=== PATIENT | male | born 1975 | race Caucasian/White ===

== ENCOUNTER 2018-10-07 22:25 | Emergency (ER) | payer MEDICARE, SELFPAY ==
[2018-10-07 22:25] VITALS: BP 127/71; PULSE 72; RESP 15; TEMP 36.9; O2SAT 96; BMI 31.4
--- NOTE | 2018-10-07 23:19 | EKG12_ITS ---
Test Reason : Blood Pressure : / mmHG Vent. Rate : 062 BPM Atrial Rate : 062 BPM P-R Int : 150 ms QRS Dur : 100 ms QT Int : 402 ms P-R-T Axes : 035 047 034 degrees QTc Int : 408 ms Normal sinus rhythm Normal ECG Confirmed by JOVANNY FIORE, DEO ([id number]), content editor DAMON CURRY ([id number]) on 10/09/2018 7:59:14 AM Referred By: MACKENZIE Confirmed By:DEO PETTY MD
--- NOTE | 2018-10-07 23:35 | ED.RN ---
DR SYED NOTIFIED PT SISTER CALLED AND IS WORRIED ABOUT HIS MENTAL STATE. DR SYED TO SPEAK WITH THE PT ABOUT THIS ISSUE AND CONCERN
[2018-10-07] MEDS: 0.9% Normal Saline 1,000 ML 1000 ML IV (23:41)
--- NOTE | 2018-10-07 23:41 | ED.RN ---
SCANNER IN ROOM NOT WORKING.
[2018-10-07 23:51] LABS: Absolute Lymphocyte Count 2.04 X10^3/ul (0.83-4.51); Absolute Neutrophil Count 4.2 X10^3/uL (2.0-7.7); Basophil# 0.02 X10^3/uL; Basophil% 0.3 % (0-1); Eosinophil# 0.06 X10^3/uL; Eosinophils% 0.9 % (0-5); Hematocrit 39.3 % (40-54); Hemoglobin 13.8 g/dl (13.0-16.5); Lymphocyte # 2.04 X10^3/ul (4.0); Lymphocyte % 30.1 % (19-41); Mean Corp Hgb Conc 35.1 g/gl (32-36); Mean Corpuscular Hgb 31.4 pg (27.0-32.0); Mean Corpuscular Volume 89.5 fL (80-94); Mean Platelet Vol. 9.5 fl (6.2-12.0); Monocyte# 0.42 X10^3/uL; Monocyte% 6.2 % (0-10); Neutrophil # 4.22 X10^3/uL (2.7-7.7); Neutrophil % 62.4 % (47-70); Platelet Count 247 K/mm3 (150-450); RBC Distribution Width CV 12.9 % (11.6-14.6); RBC Distribution Width SD 41.9 fl (35.1-43.9); Red Blood Count 4.39 M/mm3 (4.6-6.2); White Blood Count 6.8 K/mm3 (4.4-11.0)
[2018-10-07 23:52] LABS: POSITIVE COUNT NO; POSITIVE DIFFERENTIAL NO; POSITIVE MORPHOLOGY NO
[2018-10-08 00:10] LABS: ALB/GLOB Ratio 1.1 RATIO (0.9-2.4); AST(SGOT) 17 U/L (15-37); Alanine Aminotransfer ALT/SGPT 22 U/L (16-61); Albumin, Serum 3.8 g/dL (3.2-5.0); Alkaline Phosphatase 72 U/L (45-117); Anion Gap 5 (5-15); BUN 5 mg/dL (7-18); BUN/Creat Ratio 3.8 RATIO (10-20); Calcium,Total 8.7 mg/dL (8.5-10.1); Chloride 102 mmol/L (98-107); Creatinine, Serum 1.32 mg/dL (0.70-1.30); EST Glomerular Filtration Rate 63 mL/min (>60); Est Glom Filt Rate - Afr Amer 76 mL/min (>60); Estimated Creatinine Clearance 86.24 ml/min; Globulin 3.6 g/dL (2.2-4.2); Glucose 100 mg/dL (74-106); Potassium 3.6 mmol/L (3.5-5.1); Protein, Total 7.4 g/dL (6.4-8.2); Sodium Level 135 mmol/L (136-145)
--- NOTE | 2018-10-08 00:11 | ED.DCSUM_ITS ---
- ER Visit Summary Date of Service: 10/08/18 Chief Complaint: Lightheadedness History of Present Illness: The patient is a 43 M with a history of hypertension and bipolar disorder presents to the emergency department with lightheadedness. The patient states his been compliant with his medications. States tonight, he was washing dishes. He states he became lightheaded. He did not feel that he was going to pass out, but just felt mildly unsteady. He states this is never happened before. He denies chest pain. He denies shortness of breath. He states that my legs felt tight. He denies any focal symptoms. The patient's been compliant with all his medications. He denies being suicidal or homicidal. He is otherwise been in his normal state of health. Physical Examination: Vital signs reviewed General: Well-nourished, well-developed Head: Normocephalic, atraumatic Eyes: Pupils equal and reactive, extraocular muscles intact Neck, supple, no lymphadenopathy Heart: Regular rate and rhythm Respiratory: No distress, clear bilaterally Abdomen: Soft, nontender, nondistended, no peritoneal signs Back: Nontender Extremities: Nontender, no edema, no cords Skin: Normal color no rash Neuro: Alert and oriented, no focal or lateralizing deficits Test Results: [] Emergency Department Course and Treatment: The patient presents after a near syncopal episode. EKG was obtained. It was sinus rhythm without acute ischemic change. There is normal axis and intervals. The patient was given fluids and was observed. Screening labs are obtained were unremarkable. He had no further symptoms. At this point, I do feel that he safe for outpatient therapy. I do not suspect a dangerous process. He has no tachycardia. He has no tachypnea. He has no focal neurologic symptoms. The patient will be discharged home. Treatment Plan: [] Disposition: Discharge Impression: 1. Lightheadedness This note was generated with [employer] dictation software. It may contain incorrect words, spelling, and punctuation that were not noted in review of the chart prior to signing ED Disposition - Plan for ED Patient: Instructions: NEAR SYNCOPE, Vasovagal Referrals: Manuel Engel DO [Primary Care Provider] -
[2018-10-08 00:52] VITALS: BP 153/95; PULSE 65; RESP 16; O2SAT 96
== END 2018-10-08 00:53 | disposition home or self-care (01) ==
LOC: ED 10-08 00:09
PROVIDERS: Emergency Provider Emergency Medicine; Family Provider Student in an Organized Health Care Education/Training Program; PCP Student in an Organized Health Care Education/Training Program
DX: R42 Dizziness and giddiness (principal); I10 Essential (primary) hypertension; F31.9 Bipolar disorder, unspecified; Z79.899 Other long term (current) drug therapy
CPT/HCPCS: 80053; 85025; 93005; 96360; 99284; J7030; A4216

== ENCOUNTER 2022-07-09 01:14 | Emergency (ER) | payer MEDICARE, SELFPAY ==
[2022-07-09 01:15] VITALS: BP 156/111; PULSE 85; RESP 14; TEMP 36.9; O2SAT 100; BMI 31.4
--- NOTE | 2022-07-09 01:31 | RAD_ITS ---
EXAM: XR LEFT FOOT COMPLETE, 3 OR MORE VIEWS CLINICAL INDICATION: pain pain TECHNIQUE: Frontal, lateral and oblique views of the left foot. This report was created using [employer] report generation technology. COMPARISON: None. FINDINGS: BONES/JOINTS: There is mild degenerative arthrosis of the first metatarsophalangeal joint. No acute fracture. No subluxation. Normal alignment. No sclerotic or destructive changes observed. SOFT TISSUES: Unremarkable. No soft tissue swelling or gas. No radiopaque foreign body. RAD/Foot min 3 Views IMPRESSION: No demonstrated fracture, dislocation, or destructive osseous lesion. Electronically Signed: Steven Mendez MD at 2:40 EDT ,
--- NOTE | 2022-07-09 01:40 | EDS_ITS ---
HPI History of Present Illness Chief Complaint: Lower Extremity Injury Narrative Narrative: Patient is a 46-year-old male with past medical history of hypertension and schizophrenia. He states he has had pain to his left heel that is worse with weightbearing/ambulation over the last few days. He denies any direct trauma and he denies any excessive walking or activity prior to the pain beginning. He states he is concerned that he may have an infection or a broken foot because of the increased pain and with this comes in for evaluation. PFSH PFSH Home Medications lisinopril 10 mg tablet (Prinivil) 10 mg PO DAILY 06/12/16 [History Last Taken Unknown] risperidone 1 mg tablet 1 mg PO DAILY 06/12/16 [History Last Taken Unknown] clindamycin HCl 150 mg capsule 300 mg PO 4X/DAY ##80 09/02/16 [Rx Last Taken Unknown] Allergy/AdvReac Type Severity Reaction Status Date / Time methylphenidate HCl AdvReac Nausea Verified 07/09/22 01:17 [From Ritalin] Social History Smoking Status: Current some day smoker tobacco type: cigarettes ROS ROS ED Constitutional Constitutional ED: Denies chills or fever(s) ENT ENT ED: Denies sore throat Cardiovascular Cardiovascular: Denies chest pain Respiratory/Chest Respiratory/Chest: Denies cough or dyspnea Gastrointestinal Gastrointestinal: Denies abdominal pain, diarrhea, nausea or vomiting Genitourinary Genitourinary ED: Denies dysuria Musculoskeletal Musculoskeletal: Reports other Details: Positive left heel pain Integumentary Denies Abrasions or rash Neurologic Neurologic: Denies headache(s) or paresthesias Hematologic/Lymphatic Hematologic/Lymphatic: Denies easy bleeding or easy bruising EXAM Physical Exam Const Vital Signs: 07/09/22 01:15 Temperature 98.5 F Temperature Source Temporal Pulse Rate 85 Respiratory Rate 14 Blood Pressure 156/111 H Blood Pressure Mean 126 Pulse Ox 100 Oxygen Delivery Method Room Air Positive well nourished and well developed General Appearance ED: well developed Eyes PERRL and EOMs intact bilaterally Neck supple Resp normal respiratory effort and clear to auscultation bilaterally Cardio regular rate and regular rhythm Extremity Extremity Narrative: Left lower extremity is neurovascularly intact. There is no obvious bony deformity or joint effusion present. Achilles tendon is intact and ankle ligaments are stable. There is no overlying erythema or warmth to suggest cellulitis and no induration or fluctuance to suggest abscess formation. There is pain on palpation along the calcaneus as well as the lateral aspects of the heel bilaterally Remainder the exam is normal Neuro oriented x3 and CN's II-XII intact bilaterally Sensorium / Orientation: alert Psych Psych Narrative: Patient has a flat affect Skin no rashes or lesions noted Skin Narrative: No overlying soft tissue changes to suggest trauma or infection MDM MDM MDM Narrative Medical decision making narrative: Patient presented to the ER hypertensive but does have a past medical history of this. He reported pain in his left heel that occurred without any type of trauma or excessive activity. Pain in the heel region includes differential of heel spur plantar fasciitis cellulitis abscess or Sever's syndrome or possible Achilles tendon injury. By exam he can plantarflex without any pain going against Achilles tendon injury. He has no erythema or warmth no lymphangitic streaking no induration or fluctuance and therefore there is no obvious signs of an infectious process. X-ray was obtained which revealed no acute fracture or heel spur indicating pain is most likely related to irritation/inflammation along the tendons and bone consistent with Sever's syndrome. The patient was instructed that treatment for this is rest compression ice and anti- inflammatories. 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 Wear the Fernando wrap for compression and take the anti- inflammatories for pain control and return to the ER should you have any further concerns Disposition Disposition: Home, Self Care
[2022-07-09] MEDS: Ibuprofen 600 MG Tablet PO (02:41)
== END 2022-07-09 02:45 | disposition home or self-care (01) ==
PROVIDERS: Emergency Provider Emergency Medicine; PCP Student in an Organized Health Care Education/Training Program; Visit Provider Emergency Medicine
DX: M92.62 Juvenile osteochondrosis of tarsus, left ankle (principal); F20.9 Schizophrenia, unspecified; I10 Essential (primary) hypertension; F17.210 Nicotine dependence, cigarettes, uncomplicated; Z79.899 Other long term (current) drug therapy
CPT/HCPCS: 73630; 99283

== ENCOUNTER 2022-07-31 01:39 | Emergency (ER) | payer MEDICARE, MEDICAID, SELFPAY ==
[2022-07-31 01:41] VITALS: BP 156/90; PULSE 82; RESP 18; TEMP 36.7; O2SAT 98; BMI 31.1
--- NOTE | 2022-07-31 02:39 | EX.ED.DYSGE1 ---
HPI History of Present Illness Chief Complaint: Lower Extremity Injury Informant: patient Narrative Narrative: Patient presents with bilateral foot pain. He states both of them hurt mostly by the heels. He denies any specific trauma. He states he is homeless and he walks around a lot. He states his shoes do fit him well. He is not having blistering. He has gotten them wet. No fevers or chills. No swelling. No numbness or tingling. No history of DVT or PE. He states he has been seen before for this. He did have x-rays of the left foot few weeks ago. Again, he denies any specific trauma. PFSH PFSH Home Medications lisinopril 10 mg tablet (Prinivil) 10 mg PO DAILY 06/12/16 [History Last Taken Unknown] risperidone 1 mg tablet 1 mg PO DAILY 06/12/16 [History Last Taken Unknown] clindamycin HCl 150 mg capsule 300 mg PO 4X/DAY ##80 09/02/16 [Rx Last Taken Unknown] ibuprofen 600 mg tablet 600 mg PO 4X/DAY PRN pain #40 tabs 07/09/22 [Rx Last Taken Unknown] Allergy/AdvReac Type Severity Reaction Status Date / Time methylphenidate HCl AdvReac Nausea Verified 07/31/22 01:45 [From Ritalin] Social History Smoking Status: Current some day smoker tobacco type: cigarettes ROS ROS ED Constitutional Constitutional ED: Denies chills or fever(s) Cardiovascular Cardiovascular: Denies chest pain Respiratory/Chest Respiratory/Chest: Denies cough or dyspnea Gastrointestinal Gastrointestinal: Denies nausea or vomiting Genitourinary Genitourinary ED: Denies hematuria Musculoskeletal Musculoskeletal: Reports other Details: See history of present illness. ; Denies back pain or neck pain Integumentary Denies rash Neurologic Neurologic: Denies paresthesias Hematologic/Lymphatic Hematologic/Lymphatic: Denies easy bleeding, easy bruising or lymphadenopathy Allergic/Immunologic Allergic/Immunologic ED: Denies urticaria EXAM Physical Exam Narrative Exam Narrative: Patient is sound asleep when I walk in. He is lying comfortably in the bed. HEENT shows no trauma Lungs are clear bilaterally. Easy unlabored breathing. Normal saturations. Heart is regular rate about 75. I hear no murmur. Abdomen is soft. back shows no tenderness Extremities show no edema cords or color changes. There is mild redness to the soles of both feet. There is a little bit of tinea pedis between the toes but no sign of secondary infection. There is no swelling. There is wrinkling of the skin consistent with them being wet. There does not appear to be any sensory change or hyperesthesia. Const Vital Signs: 07/31/22 01:41 Temperature 98.0 F Temperature Source Temporal Pulse Rate 82 Respiratory Rate 18 Blood Pressure 156/90 H Blood Pressure Mean 112 Pulse Ox 98 Oxygen Delivery Method Room Air MDM MDM MDM Narrative Medical decision making narrative: Patient states both feet have been hurting him for a long time. There is nothing new or different today. He states he does do a lot of walking. I do not see any sign of blistering or poor fitting shoes. But I think some of this comes from being chronically moist. Some may come from athlete's foot although most of his pain is actually back by the heels and not the toes. I do not think we need to repeat x-rays. I think limiting activity and walking would limit the discomfort. I cannot force him not to walk. I can offer some meds for the athlete's foot. Patient does have social factors that affect his healing in terms of being homeless. This does limit his ability to rest during the day and not walk around a lot. I will see if we do have some socks that may at least offer him a dry option so he can alternate. Discharge Plan Triage Chief Complaint: Lower Extremity Injury ED Provider: Sohail Pitts Dx/Rx/DC Orders Clinical Impression: Bilateral foot pain, Athlete's foot, Homelessness Instructions: ED Athlete's Foot Prescriptions: No Action lisinopril [Prinivil] 10 MG tablet 10 mg PO DAILY risperidone 1 MG tablet 1 mg PO DAILY clindamycin HCl 150 MG capsule 300 mg PO 4X/DAY Qty: 80 0RF ibuprofen 600 mg tablet 600 mg PO 4X/DAY PRN (Reason: pain) Qty: 40 0RF Primary Care Provider: Manuel Engel Referrals: Manuel Engel, [Primary Care Provider] - 1 Week if not improving Activity Restrictions/Additional Instructions: Try to limit walking if able. Try to dry out shoes and use dry socks as much as able. Disposition Disposition: Home, Self Care
[2022-07-31] MEDS: Clotrimazole 1 APPLIC Tube TOPICAL (03:00)
[2022-07-31 03:26] VITALS: PULSE 81; RESP 16
== END 2022-07-31 03:26 | disposition home or self-care (01) ==
PROVIDERS: Emergency Provider Emergency Medicine; PCP Student in an Organized Health Care Education/Training Program; Visit Provider Emergency Medicine
DX: M79.672 Pain in left foot (principal); F17.210 Nicotine dependence, cigarettes, uncomplicated; B35.3 Tinea pedis; M79.671 Pain in right foot; Z59.00 Homelessness unspecified
CPT/HCPCS: 99282

== ENCOUNTER 2022-08-03 02:14 | Emergency (ER) | payer MEDICARE, MEDICAID, SELFPAY ==
[2022-08-03 02:15] VITALS: BP 167/99; PULSE 77; RESP 16; TEMP 37; O2SAT 99; BMI 33.6
--- NOTE | 2022-08-03 02:34 | EX.ED.DYSGE1 ---
HPI History of Present Illness Chief Complaint: Lower Extremity Injury Narrative Narrative: 46-year-old male here for foot pain. Notes bilateral foot pain. Denies any swelling. Denies any discoloration. Denies any recent injury or trauma. Denies any fever. Denies any loss of sensation. The patient denies recent surgery in the last 4 weeks or immobilization in the last 3 days, denies previous diagnosis of DVT or PE, he denies hemoptysis to me, unilateral leg swelling or malignancy with treatment the last 6 months. No estrogen use noted. PFSH PFS Medical History (Updated 08/03/22 @ 02:[address] Ish Hernandez DO) Schizophrenia Medical History no medical history Home Medications lisinopril 10 mg tablet (Prinivil) 10 mg PO DAILY 06/12/16 [History Last Taken Unknown] risperidone 1 mg tablet 1 mg PO DAILY 06/12/16 [History Last Taken Unknown] clindamycin HCl 150 mg capsule 300 mg PO 4X/DAY ##80 09/02/16 [Rx Last Taken Unknown] ibuprofen 600 mg tablet 600 mg PO 4X/DAY PRN pain #40 tabs 07/09/22 [Rx Last Taken Unknown] Allergy/AdvReac Type Severity Reaction Status Date / Time methylphenidate HCl AdvReac Nausea Verified 08/03/22 02:22 [From Ritalin] Social History Smoking Status: Current some day smoker tobacco type: cigarettes ROS ROS ED ROS Narrative Constitutional: Denies fever HEENT: Denies sore throat Neck: Denies neck pain Cardiovascular: Denies chest pain, syncope Respiratory: Denies shortness of breath GI: Denies nausea vomiting or abdominal pain : Denies changes in urinary habits Musculoskeletal: Endorses bilateral foot pain Neurologic: Denies numbness weakness or loss of sensation Skin denies rash EXAM Physical Exam Narrative Exam Narrative: Nursing triage notes reviewed, Vital signs reviewed Constitutional: please see mdm HENT: MMM Eyes: Pupils equal round and reactive to light, Extraocular muscles intact Neck: No stridor, no JVD, full neck ROM Lungs: Clear to auscultation, No wheezing or rales. No increased work of breathing, no conversational dyspnea, no accessory muscle use, no nasal flaring. No respiratory distress noted Heart: Regular rate and rhythm, No murmurs, No rubs and No gallops, 2+ distal pulses (radial, femoral, posterior tibial) in all extremities Abdomen: Soft, there is no tenderness, rigidity, rebound or guarding, no obvious peritoneal signs, no palpable pulsatile abdominal masses, no auscultated abdominal bruit : No CVAT Extremities: No edema, no obvious deformities, intact plantar dorsiflexion, no calf tenderness, compartments are soft Neuro: Intact sensation L1-S1 dermatomal distributions. Intact 5/5 strength in hip flexion (T12-L3). Knee extension (L2-L4). Ankle dorsiflexion (L4-L5). Ankle plantar flexion (S1). Great toe extension (L5). 2+ patellar and Achilles DTRs. Skin: No rash or lesions noted Const Vital Signs: 08/03/22 02:15 Temperature 98.6 F Temperature Source Temporal Pulse Rate 77 Respiratory Rate 16 Blood Pressure 167/99 H Blood Pressure Mean 121 Pulse Ox 99 Oxygen Delivery Method Room Air MDM MDM MDM Narrative Medical decision making narrative: Chief Complaint: Bilateral foot burning External records reviewed: Seen on 07/31 for similar symptoms. Diagnosed athlete's foot I considered the following differential diagnosis: Trench foot, athlete's foot, DVT, carbon syndrome, arterial occlusion, fracture dislocation, cellulitis, necrotizing fasciitis The patient was hemodynamically stable, afebrile, nontoxic-appearing exam consistent with prior episode of athlete's foot. No clinical evidence of arterial occlusion, compartment syndrome, fracture dislocation, DVT, necrotizing fasciitis, cellulitis. Encouraged him to continue his treatments. The patient was given clean socks. There is no acute life limiting etiology could be ascertained. In terms the patient has a complaint of coughing up blood. He denies this to me. Factors affecting care: History of schizophrenia, hypertension Social determinants of health: Homeless History obtained from others: None Shared decision making: I will have a discussion with the patient and or visitors regarding risk/benefits of further testing or admission. They will be made aware of of the risk/benefits inherent in this decision they will be given the opportunity to voice understanding. Consults: None Discharge Plan Triage Chief Complaint: Lower Extremity Injury ED Provider: Ish Hernandez Dx/Rx/DC Orders Clinical Impression: Bilateral foot pain, Homelessness Instructions: ED RICE Prescriptions: No Action lisinopril [Prinivil] 10 MG tablet 10 mg PO DAILY risperidone 1 MG tablet 1 mg PO DAILY clindamycin HCl 150 MG capsule 300 mg PO 4X/DAY Qty: 80 0RF ibuprofen 600 mg tablet 600 mg PO 4X/DAY PRN (Reason: pain) Qty: 40 0RF Primary Care Provider: Manuel Engel Referrals: Manuel Engel, [Primary Care Provider] - Activity Restrictions/Additional Instructions: Thank you for trusting us with your care today! Please take Tylenol (2 pills, 650 mg), ibuprofen (2 pills, 400 mg) every 6 hours as needed for pain and fever control. Please return to the emergency department if your symptoms change or worsen. Please follow with your primary care physician for further outpatient evaluation and management. Disposition Disposition: Home, Self Care
== END 2022-08-03 03:28 | disposition home or self-care (01) ==
LOC: ED 03:02
PROVIDERS: Emergency Provider Emergency Medicine; PCP Student in an Organized Health Care Education/Training Program; Visit Provider Emergency Medicine
DX: M79.671 Pain in right foot (principal); F20.9 Schizophrenia, unspecified; F17.210 Nicotine dependence, cigarettes, uncomplicated; M79.672 Pain in left foot; I10 Essential (primary) hypertension; Z59.00 Homelessness unspecified; Z79.899 Other long term (current) drug therapy
CPT/HCPCS: 99283

== ENCOUNTER 2022-08-04 23:40 | Emergency (ER) | payer MEDICARE, MEDICAID, SELFPAY ==
[2022-08-04 23:41] VITALS: BP 152/87; PULSE 99; RESP 16; TEMP 36.7; O2SAT 99; BMI 31.0
[2022-08-05 00:24] VITALS: BP 152/87; PULSE 99; RESP 16; O2SAT 99
--- NOTE | 2022-08-05 00:24 | EX.ED.DYSGE1 ---
HPI History of Present Illness Chief Complaint: Lower Extremity Injury Narrative Narrative: Patient is a 46-year-old male with past medical history of schizophrenia as well as homelessness. He was seen in the ER at the end of June and had x-rays of his feet which showed no acute findings. Since that time he was seen on July 31 and August 03 secondary to foot pain and burning. Patient states that the symptoms have persisted that he has not followed up with podiatry and because of the persistent symptoms comes in for repeat evaluation [facility] Medical History Schizophrenia Home Medications lisinopril 10 mg tablet (Prinivil) 10 mg PO DAILY 06/12/16 [History Last Taken Unknown] risperidone 1 mg tablet 1 mg PO DAILY 06/12/16 [History Last Taken Unknown] clindamycin HCl 150 mg capsule 300 mg PO 4X/DAY ##80 09/02/16 [Rx Last Taken Unknown] ibuprofen 600 mg tablet 600 mg PO 4X/DAY PRN pain #40 tabs 07/09/22 [Rx Last Taken Unknown] Allergy/AdvReac Type Severity Reaction Status Date / Time methylphenidate HCl AdvReac Nausea Verified 08/03/22 02:22 [From Ritalin] Social History Smoking Status: Current some day smoker tobacco type: cigarettes ROS ROS ED Constitutional Constitutional ED: Denies chills or fever(s) ENT ENT ED: Denies sore throat Cardiovascular Cardiovascular: Denies chest pain Respiratory/Chest Respiratory/Chest: Denies cough or dyspnea Gastrointestinal Gastrointestinal: Denies abdominal pain, diarrhea, nausea or vomiting Genitourinary Genitourinary ED: Denies dysuria Musculoskeletal Musculoskeletal: Reports other Details: Positive bilateral foot pain Integumentary Denies rash Neurologic Neurologic: Denies headache(s) Hematologic/Lymphatic Hematologic/Lymphatic: Denies easy bleeding or easy bruising EXAM Physical Exam Const Vital Signs: 08/04/22 23:41 Temperature 98.0 F Temperature Source Temporal Pulse Rate 99 Respiratory Rate 16 Blood Pressure 152/87 H Blood Pressure Mean 108 Pulse Ox 99 Oxygen Delivery Method Room Air Positive well nourished and well developed General Appearance ED: well developed Eyes PERRL and EOMs intact bilaterally Neck supple Resp normal respiratory effort and clear to auscultation bilaterally Cardio regular rate and regular rhythm Extremity Extremity Narrative: Bilateral lower extremities are neurovascularly intact. There is no obvious bony deformity or joint effusion. Capillary refill is less than 3 seconds bilaterally. No subungual hematomas noted. No overlying abrasions or ecchymosis. Patient has mild tinea pedis without secondary changes to suggest infection. No ulcerative lesions. No erythema or warmth or lymphangitic streaking. Neuro oriented x3 and CN's II-XII intact bilaterally Sensorium / Orientation: alert Psych Psych Narrative: Patient has a flat affect Skin Skin Narrative: Soft tissue changes to the bilateral feet consistent with tinea pedis otherwise normal MDM MDM MDM Narrative Medical decision making narrative: Patient presented to the ER hypertensive otherwise with stable vitals. He denied any recent trauma. He states the pain is more of a burning sensation and is present in both feet. He states he has been using the cream without any symptom improvement. He states there is been no change to his symptoms such as increased severity or waxing and waning nature but because of his persistent nature comes in for repeat evaluation. Differential diagnosis includes cellulitis abscess osteomyelitis DVT acute arterial occlusion or gout. The patient does not have asymmetric edema there is negative Homans' sign bilaterally there is no erythema or warmth or streaking no induration or fluctuance noted and therefore concerns for infectious process or venous or arterial occlusion are low. As there is no report or signs of trauma and my concern for osteomyelitis is low there is no need for repeat x-ray . he does have changes consistent with tinea pedis with this is mild nature without systemic symptoms and therefore he needs to continue to use the cream that was prescribed at the previous evaluation. I do not feel there is need for further work-up and he can have this further evaluated by podiatry on an outpatient basis. The patient was informed that there is no grounds for further testing or admission which is what he was requesting at this time will be discharged and strongly advised to follow-up on an outpatient basis History & Record Review Discussion w/independent historian: Patient Discharge Plan Triage Chief Complaint: Lower Extremity Injury ED Provider: Volodymyr Paz Dx/Rx/DC Orders Clinical Impression: Bilateral foot pain, Athlete's foot Instructions: What Is Peripheral Neuropathy, ED Fungal Skin Infection (Tinea) Prescriptions: No Action lisinopril [Prinivil] 10 MG tablet 10 mg PO DAILY risperidone 1 MG tablet 1 mg PO DAILY clindamycin HCl 150 MG capsule 300 mg PO 4X/DAY Qty: 80 0RF ibuprofen 600 mg tablet 600 mg PO 4X/DAY PRN (Reason: pain) Qty: 40 0RF Primary Care Provider: Manuel Engel Referrals: Manuel Engel DO [Primary Care Provider] - Gael Obrien DPM [Med Staff - Active Staff] - Disposition Disposition: Home, Self Care
== END 2022-08-05 00:30 | disposition home or self-care (01) ==
PROVIDERS: Emergency Provider Emergency Medicine; PCP Student in an Organized Health Care Education/Training Program; Visit Provider Emergency Medicine
DX: M79.671 Pain in right foot (principal); F20.9 Schizophrenia, unspecified; M79.672 Pain in left foot; B35.3 Tinea pedis; F17.210 Nicotine dependence, cigarettes, uncomplicated; Z59.00 Homelessness unspecified; Z79.899 Other long term (current) drug therapy
CPT/HCPCS: 99282

== ENCOUNTER 2022-08-18 02:04 | Emergency (ER) | payer MEDICARE, MEDICAID, SELFPAY ==
[2022-08-18 02:06] VITALS: BP 142/98; PULSE 83; RESP 18; TEMP 36.2; O2SAT 98; BMI 30.6
--- NOTE | 2022-08-18 02:50 | RAD_ITS ---
EXAM: XR LEFT FOOT COMPLETE, 3 OR MORE VIEWS CLINICAL INDICATION: pain TECHNIQUE: Frontal, lateral and oblique views of the left foot. COMPARISON: 07/09/2022. FINDINGS: BONES/JOINTS: Unremarkable. No acute fracture. No subluxation. Normal alignment. Preservation of the joint space. No sclerotic or destructive changes observed. SOFT TISSUES: Unremarkable. No soft tissue swelling or gas. No radiopaque foreign body. RAD/Foot min 3 Views IMPRESSION: Negative left foot x-rays. Electronically Signed: Garry Silver MD at 3:16 EDT ,
--- NOTE | 2022-08-18 03:50 | EDS_ITS ---
HPI History of Present Illness Chief Complaint: Lower Extremity Injury Narrative Narrative: Patient is a 46-year-old male with past medical history of schizophrenia who presents with complaint of left foot pain. Patient has been seen in the ER secondary to this in the past with negative x-rays and he fails to follow-up with the podiatry as directed. He states there has been no injury and he denies any fevers or chills or discoloration to the foot. He states he has pain when he is laying down but more so when he ambulates. He states the pain will go from his heel/ankle underneath his foot towards his toes. He states it does not improve with recurrent ambulation but simply seems to worsen the more he stands or walks. [facility] and he was advised to come to the hospital for evaluation so he presents at this time [facility] Medical History Schizophrenia Home Medications NK 08/18/22 [History Last Taken Unknown] Allergy/AdvReac Type Severity Reaction Status Date / Time methylphenidate HCl AdvReac Nausea Verified 08/18/22 02:05 [From Ritalin] Social History Smoking Status: Current some day smoker tobacco type: cigarettes ROS ROS ED Constitutional Constitutional ED: Denies chills or fever(s) ENT ENT ED: Denies sore throat Cardiovascular Cardiovascular: Denies chest pain Respiratory/Chest Respiratory/Chest: Denies cough or dyspnea Gastrointestinal Gastrointestinal: Denies abdominal pain, diarrhea, nausea or vomiting Genitourinary Genitourinary ED: Denies dysuria Musculoskeletal Musculoskeletal: Reports other Details: Positive left foot pain Integumentary Denies Abrasions or rash Neurologic Neurologic: Denies headache(s) or paresthesias Hematologic/Lymphatic Hematologic/Lymphatic: Denies easy bleeding or easy bruising EXAM Physical Exam Const Vital Signs: 08/18/22 02:06 Temperature 97.2 F L Temperature Source Temporal Pulse Rate 83 Respiratory Rate 18 Blood Pressure 142/98 H Blood Pressure Mean 112 Pulse Ox 98 Oxygen Delivery Method Room Air Positive well nourished and well developed General Appearance ED: well developed Eyes PERRL and EOMs intact bilaterally Neck supple Resp normal respiratory effort and clear to auscultation bilaterally Cardio regular rate and regular rhythm Extremity Extremity Narrative: Left lower extremity is neurovascularly intact. Achilles tendon is intact and ankle ligaments are stable. Patient has plus 2 out of 4 dorsalis pedis pulses bilaterally. Capillary refill is less than 3 seconds. No overlying erythema or warmth to suggest infection no induration or fluctuance to suggest abscess and no lymphangitic streaking. Patient has mild soft tissue skin breakdown in between the webbing of his toes concerning for mild tinea pedis. There is pain with palpation along the posterior aspect of the medial malleolus which tracks down along the Achilles tendon and calcaneus to the midportion of the foot. There is no obvious ecchymosis or soft tissue swelling or crepitance palpated Neuro oriented x3 and CN's II-XII intact bilaterally Sensorium / Orientation: alert Psych Psych Narrative: Patient has a flat affect Skin no rashes or lesions noted MDM MDM MDM Narrative Medical decision making narrative: Patient presented to the ER afebrile with complaint of persistent/chronic left foot pain with no known injury. Differential diagnosis and includes heel spur versus acute foreign body versus fracture versus cellulitis versus tarsal tunnel syndrome versus osteomyelitis. By exam there is no erythema or warmth so cellulitis and abscess are less likely as well as osteomyelitis. There is no signs of puncture wound or injury so concern for foreign body and fracture is low as well. With pain tracking along the medial malleolus towards the bottom portion of the foot there is concern this is tarsal tunnel syndrome but if so that is treated conservatively and he does not need further work-up or admission. X-ray was obtained which revealed no clinically significant changes and was compared to one from roughly 6 weeks ago which revealed also no fracture or dislocation foreign body or signs of osteomyelitis. Therefore at this time there is no need to further evaluate the patient in the ER and he was instructed that he has to follow-up with the podiatry as he will not receive pain medication in the ER for his chronic left foot pain History & Record Review Discussion w/independent historian: Patient Radiography Diagnostic Testing: Clinical Impression(s) from Imaging Studies Foot X-Ray 08/18/22 02:50 IMPRESSION: Negative left foot x-rays. Electronically Signed: Garry Silver MD at 3:16 EDT , X-ray of the left foot reveals no acute fracture dislocation or foreign body or signs of free air. No moth-eaten appearance to suggest osteomyelitis Discharge Plan Triage Chief Complaint: Lower Extremity Injury ED Provider: Volodymyr Paz Dx/Rx/DC Orders Clinical Impression: Chronic pain in left foot, Tarsal tunnel syndrome, left lower limb, Schizophrenia Instructions: Understanding Heel Pain Prescriptions: No Action NK Primary Care Provider: Manuel Engel Referrals: Manuel Engel DO [Primary Care Provider] - Garry Bailey DPM [Med Staff - Active Staff] - Activity Restrictions/Additional Instructions: Please follow-up with podiatry to further assess the cause of your chronic foot pain as x-ray showed no sign of fracture dislocation or infection. Disposition Disposition: Home, Self Care Discharge Date/Time: 08/18/22 03:55
== END 2022-08-18 03:55 | disposition home or self-care (01) ==
PROVIDERS: Emergency Provider Emergency Medicine; PCP Student in an Organized Health Care Education/Training Program; Visit Provider Emergency Medicine
DX: G89.29 Other chronic pain (principal); F20.9 Schizophrenia, unspecified; F17.210 Nicotine dependence, cigarettes, uncomplicated; G57.52 Tarsal tunnel syndrome, left lower limb
CPT/HCPCS: 73630; 99282

== ENCOUNTER 2022-08-22 02:16 | Emergency (ER) | payer MEDICARE, MEDICAID, SELFPAY ==
[2022-08-22 02:16] VITALS: BP 158/92; PULSE 85; RESP 16; TEMP 37.2; O2SAT 98
--- NOTE | 2022-08-22 03:06 | ED.VIS.LOWEX ---
HPI History of Present Illness Chief Complaint: Lower Extremity Injury Informant: patient Narrative Narrative: Foot pain for months. This is his fifth or so visit here in the emergency department in the last couple months for the same thing. He has been referred to podiatry. He states he has an appointment but has not seen them yet. He denies any new symptoms. [facility] Medical History Schizophrenia Home Medications NK 08/18/22 [History Last Taken Unknown] Allergy/AdvReac Type Severity Reaction Status Date / Time methylphenidate HCl AdvReac Nausea Verified 08/22/22 02:18 [From Ritalin] Social History Smoking Status: Current some day smoker tobacco type: cigarettes ROS ROS ED Constitutional Constitutional ED: Denies chills or fever(s) Musculoskeletal Musculoskeletal: Reports extremity pain; Denies neck pain Integumentary Denies Abrasions, rash or wounds Neurologic Neurologic: Denies paresthesias or weakness EXAM Physical Exam Const Vital Signs: 08/22/22 02:16 Temperature 99 F Temperature Source Temporal Pulse Rate 85 Respiratory Rate 16 Blood Pressure 158/92 H Blood Pressure Mean 114 Pulse Ox 98 Oxygen Delivery Method Room Air Positive well nourished, well developed and unkempt General Appearance ED: unkempt, well developed and NAD Neck full ROM and supple Back/Spine normal ROM and normal to inspection Extremity normal to inspection and full ROM Extremity Narrative: Tender at the calcaneus and to the posterior aspect of the arch at the plantar aspect of the left foot. Skin is normal no lesions no abscess no signs of cellulitis. Full range of motion without difficulty, neurovascularly intact distally, no tenderness at Achilles. Neuro oriented x3, no focal motor deficits and no sensory deficits noted Sensorium / Orientation: alert Psych mental status grossly normal and thought process normal Appearance: unkempt Skin no wounds Rashes: no rashes MDM MDM MDM Narrative Medical decision making narrative: Patient is here at 2 AM for this problem that he continues to return to the ER for. I am giving him an injection of Depo-Medrol 40 mg and advised him to continue following up with podiatry, and to look for [id number] shoe insole inserts. Discharge Plan Triage Chief Complaint: Lower Extremity Injury ED Provider: Poncho Rizzo Dx/Rx/DC Orders Clinical Impression: Plantar fasciitis of left foot Instructions: ED Plantar Fasciitis Prescriptions: No Action NK Primary Care Provider: Manuel Engel Referrals: Manuel Engel DO [Primary Care Provider] - Gael Obrien DPM [Med Staff - Active Staff] - Keep Jesus appointment Disposition Disposition: Home, Self Care
[2022-08-22] MEDS: MethylPREDNISolone Acetate 40 MG/ML Vial IM (03:43)
== END 2022-08-22 03:47 | disposition home or self-care (01) ==
PROVIDERS: Emergency Provider Emergency Medicine; PCP Student in an Organized Health Care Education/Training Program; Visit Provider Emergency Medicine
DX: M72.2 Plantar fascial fibromatosis (principal); F17.210 Nicotine dependence, cigarettes, uncomplicated
CPT/HCPCS: 96372; 99282

== ENCOUNTER 2022-08-31 02:54 | Emergency (ER) | payer MEDICARE, MEDICAID, SELFPAY ==
[2022-08-31 02:55] VITALS: BP 162/95; PULSE 65; RESP 17; TEMP 36.4; O2SAT 98; BMI 30.4
--- NOTE | 2022-08-31 03:07 | ED.VIS.LOWEX ---
HPI History of Present Illness Chief Complaint: Lower Extremity Injury Detail of Chief Complaint: Left heel pain Informant: patient Narrative Narrative: Patient presents the emergency department complaint of left heel pain that he has had for months. Patient states has been seen multiple times in the emergency department for same. He had x-rays of his foot. He denies any trauma. Patient complains of a lot of burning in his heel. Patient states he was given some cream that he is been using on his foot but is not helping. He has an appointment with podiatry set for late September but he cannot tell me who is following up with. Patient denies fevers or chills or sweats. PFSH PFS Medical History Schizophrenia Home Medications naproxen 500 mg tablet (Naprosyn) 500 mg PO BID PRN pain #20 tabs 08/31/22 [Rx Last Taken Unknown] Allergy/AdvReac Type Severity Reaction Status Date / Time methylphenidate HCl AdvReac Nausea Verified 08/31/22 02:58 [From Ritalin] Social History Smoking Status: Former smoker ROS ROS ED Review of Systems ROS Unobtainable: other Constitutional Constitutional ED: Reports lethargy; Denies chills, fever(s), sweats or weight loss Eyes Eyes: Denies blurry vision, change in vision or diplopia ENT ENT ED: Denies rhinorrhea or sore throat Cardiovascular Cardiovascular: Denies chest pain, orthopnea or racing heartbeat Respiratory/Chest Respiratory/Chest: Denies cough, dyspnea, dyspnea on exertion, orthopnea or sputum Gastrointestinal Gastrointestinal: Denies abdominal pain, diarrhea, nausea or vomiting Genitourinary Genitourinary ED: Denies dysuria, hematuria or urinary frequency Musculoskeletal Musculoskeletal: Reports other Details: Left foot pain ; Denies arthralgias, back pain, myalgias or neck pain Integumentary Denies abscess, Abrasions or rash Neurologic Neurologic: Denies headache(s) or weakness Psychiatric Psychiatric: Denies anxiety, depression or suicidal thoughts Endocrine Endocrinology: Denies polydipsia, polyphagia or polyuria Hematologic/Lymphatic Hematologic/Lymphatic: Denies easy bleeding, easy bruising or lymphadenopathy Allergic/Immunologic Allergic/Immunologic ED: Denies mouth swelling, tongue swelling or urticaria EXAM Physical Exam Const Vital Signs: 08/31/22 02:55 Temperature 97.6 F L Temperature Source Temporal Pulse Rate 65 Respiratory Rate 17 Blood Pressure 162/95 H Blood Pressure Mean 117 Pulse Ox 98 Oxygen Delivery Method Room Air Positive well nourished and well developed General Appearance ED: well developed and NAD HEENT Reports TM's clear and moist mucous membranes normocephalic and atraumatic; Negative for trauma or tenderness Tympanic Membrane ED: Yes TM's clear Eyes PERRL and EOMs intact bilaterally General Eye ED: Negative for pale conjunctiva or scleral icterus Neck no lymphadenopathy, supple and no JVD General: Negative for tenderness Chest Wall inspection of chest normal and palpation of chest normal Chest: Negative for tenderness Resp normal respiratory effort and clear to auscultation bilaterally Effort and Inspection: Negative for respiratory distress or pain with movement Auscultation: Negative for rhonchi, wheezes or diminished lung sounds Cardio regular rate, regular rhythm, S1 normal heart sound, S2 normal heart sound and no murmurs Peripheral Pulses: pulses 2+ throughout GI normal to inspection, nondistended, normoactive bowel sounds, soft to palpation, non-tender, non-distended and no masses Back/Spine no CVA tenderness and no thoracic nor lumbar tenderness Extremity Extremity Narrative: Left foot-patient has tenderness palpation diffusely about the heel. There is no erythema or warmth. No signs of trauma. No real significant discomfort over the arch of the foot and the fascia does not appear tight. He is neurovascular intact. General Extremety ED: Negative for edema General Extremity: Negative for edema Neuro oriented x3, CN's II-XII intact bilaterally, no sensory deficits noted and gait normal Sensorium / Orientation: awake, alert, oriented to person, oriented to place and oriented to time Motor Exam: strength 5/5 throughout and strength abnormal Psych mental status grossly normal Skin no rashes or lesions noted and no wounds MDM MDM MDM Narrative Medical decision making narrative: I reviewed some of patient's prior visits. Etiology of his pain was unclear and one physician thought it might be plantar fasciitis. Patient had x-rays less than 2 weeks ago that were unremarkable. I do not feel repeat imaging is indicated as he has had no injury or trauma. He is advised to try to get into see podiatry sooner if possible. He will be given a prescription for Naprosyn. Patient comfortable with plan and will discharge to home. Discharge Plan Triage Chief Complaint: Lower Extremity Injury ED Provider: Win Campos Dx/Rx/DC Orders Clinical Impression: Left foot pain Instructions: ED Pain, Acute, Uncertain Cause Prescriptions: New naproxen [Naprosyn] 500 mg tablet 500 mg PO BID PRN (Reason: pain) Qty: 20 0RF Primary Care Provider: Manuel Engel Referrals: Manuel Engel DO [Primary Care Provider] - Activity Restrictions/Additional Instructions: Follow-up with podiatry at earliest possible time. You may also follow-up with your primary care physician. Disposition Disposition: Home, Self Care
[2022-08-31] MEDS: Naproxen 375 MG Tablet PO (03:15)
== END 2022-08-31 03:19 | disposition home or self-care (01) ==
LOC: ED 03:14
PROVIDERS: Emergency Provider Emergency Medicine; PCP Student in an Organized Health Care Education/Training Program; Visit Provider Emergency Medicine
DX: M79.672 Pain in left foot (principal); Z87.891 Personal history of nicotine dependence
CPT/HCPCS: 99284

== ENCOUNTER 2023-02-15 22:48 | Emergency (ER) | payer MEDICARE, MEDICAID, SELFPAY ==
[2023-02-15 22:49] VITALS: BP 129/77; PULSE 86; RESP 18; TEMP 36.6; O2SAT 98; BMI 25.7
--- NOTE | 2023-02-15 23:15 | EDS_ITS ---
HPI HPI - URI History of Present Illness Chief Complaint: Cold Sx Informant: patient Narrative Narrative: Patient states he recently was living at the [facility] [employer] [facility] and had multiple sick contacts there, and for the last 2 days has had cold symptoms. Denies dyspnea or known fevers. States you can take as long as you want to run tests, I am homeless. ROS ROS ED Constitutional Constitutional ED: Reports malaise; Denies chills or fever(s) ENT ENT ED: Reports rhinorrhea and sore throat; Denies ear pain or nasal congestion Cardiovascular Cardiovascular: Denies chest pain or palpitations Respiratory/Chest Respiratory/Chest: Reports cough; Denies dyspnea Gastrointestinal Gastrointestinal: Reports diarrhea and nausea; Denies abdominal pain or vomiting Genitourinary Genitourinary ED: Denies dysuria or hematuria Musculoskeletal Musculoskeletal: Denies myalgias or neck pain Integumentary Denies abscess or rash Neurologic Neurologic: Reports headache(s); Denies paresthesias or weakness Psychiatric Psychiatric: Denies depression or suicidal thoughts Endocrine Endocrinology: Denies polydipsia or polyuria PFSH PFS Medical History Schizophrenia Home Medications naproxen 500 mg tablet (Naprosyn) 500 mg PO BID PRN pain #20 tabs 08/31/22 [Rx Last Taken Unknown] Allergy/AdvReac Type Severity Reaction Status Date / Time methylphenidate HCl AdvReac Nausea Verified 02/15/23 22:51 [From Ritalin] Social History (Updated 02/15/23 @ 23:[address] Poncho Rizzo MD) Smoking Status: Current some day smoker tobacco type: cigarettes EXAM Physical Exam Const Vital Signs: 02/15/23 22:49 02/15/23 23:17 Temperature 97.9 F Temperature Source Temporal Pulse Rate 86 Respiratory Rate 18 Respiratory Effort Short of Breath Respiratory Pattern Normal Blood Pressure 129/77 H Blood Pressure Mean 94 Pulse Ox 98 Oxygen Delivery Method Room Air Positive well nourished and well developed General Appearance ED: well developed and NAD HEENT Reports moist mucous membranes normocephalic and atraumatic Throat: Negative for posterior oropharynx abnormal Eyes PERRL and EOMs intact bilaterally Neck no lymphadenopathy, supple and no meningeal signs Resp normal respiratory effort and clear to auscultation bilaterally Cardio no murmurs Rate: regular rate Rhythm: regular rhythm Neuro oriented x3, CN's II-XII intact bilaterally and no sensory deficits noted Sensorium / Orientation: alert Motor Exam: strength 5/5 throughout Skin Lesions: no lesions Rashes: no rashes MDM MDM MDM Narrative Medical decision making narrative: Patient with a benign exam and normal vital signs including pulse oximetry 98% on room air, no dyspnea and lungs are clear. Consistent with viral syndrome, COVID and influenza swabs were sent, and he was given an injection of Toradol for his headache/symptoms. COVID is positive. Does not meet any criteria for antivirals, given appropriate discharge instructions for supportive care. Discharge Plan Triage Chief Complaint: Cold Sx ED Provider: Poncho Rizzo Dx/Rx/DC Orders Clinical Impression: COVID-19 Instructions: Coronavirus Disease 2019 (COVID-19): Caring for Yourself or Others Prescriptions: No Action naproxen [Naprosyn] 500 mg tablet 500 mg PO BID PRN (Reason: pain) Qty: 20 0RF Primary Care Provider: Manuel Engel Referrals: Manuel Engel DO [Primary Care Provider] - As Needed Activity Restrictions/Additional Instructions: Try to get a home portable pulse oximeter and closely watch your oxygen levels periodically. If you stay below 90% for more than a minute or so, and/or you are feeling like your breathing is getting worse, return to the emergency department for further evaluation. Currently, CDC recommendations state that you should stay home through day 5 of symptoms, then as long as symptoms are improving, if you need to go to work or somewhere else you may for days 6-10 as long as you are wearing a mask the entire time. If you are feeling better after day 10 you may resume life is normal. Disposition Disposition: Home, Self Care
[2023-02-15] MEDS: Ketorolac 60 MG/2 ML Vial IM (23:27)
== END 2023-02-16 00:56 | disposition home or self-care (01) ==
PROVIDERS: Emergency Provider Emergency Medicine; PCP Student in an Organized Health Care Education/Training Program; Visit Provider Emergency Medicine
DX: U07.1 COVID-19 (principal); F17.210 Nicotine dependence, cigarettes, uncomplicated; Z59.00 Homelessness unspecified
CPT/HCPCS: 87428; 96372; 99282

== ENCOUNTER 2025-02-28 20:19 | Emergency (ER) | payer MEDICARE, MEDICAID, SELFPAY ==
[2025-02-28 20:19] VITALS: BP 150/97; PULSE 92; RESP 16; TEMP 37.1; O2SAT 98; BMI 30.3
--- OUTSIDE RECORDS SUMMARY | 2025-02-28 20:51 | XMS RPT_ITS | CCD ---
Author Organization [facility] Care Team Providers Care Landscape Foreman Name Role Phone HIRAM LAURA Attending Unavailable MANUEL TRUONG Primary Care Unavailable Lucinda Kenney Emergency Provider Call, On Primary Care Provider Unavailoscar e Sonia Martin Primary Care Provider Tyrone Tucker Emergency Provider MANUEL TRUONG DO Primary Care Physician Lucinda Kenney Attending Unavailable Call, On Primary Care Unavailable Call, On Primary Care Unavailable Tyrone Tucker Attending Unavailable MANUEL TRUONG DO Primary Care Unavailable MEDHAT FOUNTAIN DO Attending Unavailable Truong, Manuel Primary Care Unavailable Volodymyr Paz Attending Unavailable Truong, Manuel Primary Care Unavailable Volodymyr Paz Attending Unavailable Truong, Manuel Primary Care Unavailable Ish Hernandez Attending Unavailable Truong, Manuel Primary Care Unavailable Sohail Pitts Attending Unavailable Truong, Manuel Primary Care Unavailable AndVolodymyr salazar Attending Unavailable Truong, Manuel Primary Care Unavailable Poncho Rizzo Attending Unavailable Unavailable Primary Care Provider Unavailoscar welch Allergies Allergy Classification Reported Allergen(s) Allergy Type Date of Onset Reaction(s) Facility (4 sources) Aspirin; Translations: [ASPIRIN] Drug Allergy 12-13-2004 Vomiting [facility] Repository (9 sources) Methylphenidate; Translations: [METHYLPHENIDATE HCL] Drug Allergy 12-13-2004 GI Upset [facility] Repository (1 source) Methylphenidate; Translations: [methylphenidate ] Drug Allergy [facility] Medications Current Medications Medication Drug Class(es) Dates Sig (Normalized) Sig (Original) clindamycin 150 mg oral capsule (3 sources) Lincosamide Antibacterial Start: 09-02-2016 take 300 mg by mouth four times daily Clindamycin Hcl Active 300 MG PO 4 TIMES DAILY September 02, 2016 12:00am ibuprofen 600 mg oral tablet (3 sources) Nonsteroidal Anti-inflammatory Drug Start: 07-09-2022 take 600 mg by mouth four times daily Ibuprofen Active 600 MG PO 4 TIMES DAILY July 09, 2022 2:44am naproxen 500 mg oral tablet (7 sources) Nonsteroidal Anti-inflammatory Drug Start: 08-31-2022 take 1 tablet by mouth twice daily Naproxen (Naprosyn) 500 mg tablet Active 500 MG PO TWICE A DAY August 31, 2022 12:00am Start: 03-09-2013 End: 03-17-2013 take 500 mg by mouth twice daily as needed Naproxen Discontinued 500 MG PO TWICE DAILY NEEDED March 09, 2013 1:00am March 17, 2013 10:04pm [place] (Nk) (2 sources) Start: 08-18-2022 [place] (Nk) Active August 18, 2022 12:00am risperiDONE 1 mg oral tablet (4 sources) Atypical Antipsychotic Start: 03-31-2016 take 1 mg by mouth once daily Risperidone Active 1 MG PO DAILY June 12, 2016 1:00am Comment on above: Take 1 tablet by [facility] once daily. Completed/Discontinued Medications Medication Drug Class(es) Dates Sig (Normalized) Sig (Original) azithromycin 250 mg oral tablet (6 sources) Macrolide Antimicrobial Start: 03-17-2013 End: 03-27-2013 take 250 mg by mouth once daily Azithromycin Discontinued 250 MG PO DAILY March 17, 2013 1:00am March 27, 2013 1:55pm benzonatate 200 mg oral capsule (1 source) Non-narcotic Antitussive Start: 01-17-2018 take 1 capsule by mouth every eight hours as needed for cough and cough Benzonatate 200 mg capsule Indications: Cough Take 1 capsule by mouth three times daily as needed. 30 capsule 0 01/17/2018 Active Comment on above: Take 1 capsule by mo [facility] three times daily as needed. dicyclomine hydrochloride 20 mg oral tablet (4 sources) Anticholinergic Start: 07-22-2022 take 1 tablet by mouth four times daily as needed for pain Dicyclomine [Bentyl *] 1 TAB PO FOUR TIMES A DAY PRN For PAIN, SPASM July 22, 2022 Active 12 hr guaiFENesin 600 mg extended release oral tablet (1 source) Start: 01-17-2018 take 2 tablets by mouth twice daily guaiFENesin (MUCINEX) 600 mg 12 hr tablet Indications: Cough Take 2 tablets by mouth twice daily. 40 tablet 0 01/17/2018 Active Comment on above: Take 2 tablets by mo [facility] twice daily. lisinopril 10 mg oral tablet (17 sources) Angiotensin Converting Enzyme Inhibitor Start: 09-18-2015 take 1 tablet by mouth once daily lisinopril (ZESTRIL, PRINIVIL) 10 mg tablet Indications: Essential hypertension Take 1 tablet by mouth once daily. 90 tablet 3 10/31/2017 Active Start: 01-16-2013 End: 03-17-2013 take 10 mg by mouth once daily Lisinopril Discontinued 10 MG PO DAILY February 08, 2013 12:00am March 17, 2013 10:04pm Comment on above: Take 1 tablet by bhargav once daily. Problems Active Problems Problem Classification Problem Date Documented Date Episodic/Chronic Administrative/social admission (6 sources) Homeless; Translations: [Homeless] 07-31-2022 Episodic Attention-deficit, conduct, and disruptive behavior disorders (1 source) Attention deficit hyperactivity disorder; Translations: [Attention-deficit hyperactivity disorder, unspecified type] Onset: 12-13-2004 04-13-2016 Chronic Biliary tract disease (2 sources) Gallstone; Translations: [Calculus of gallbladder without cholecystitis without obstruction] Episodic Conditions associated with dizziness or vertigo (1 source) Dizziness; Translations: [Dizziness and giddiness] 03-24-2023 Episodic Essential hypertension (2 sources) Hypertensive disorder; Translations: [Essential (primary) hypertension] Onset: 05-20-2012 09-18-2015 Chronic Headache; including migraine (1 source) Headache; Translations: [Headache] Episodic Headache; including migraine (1 source) Headache; including migraine; Translations: [Headache, unspecified] Onset: 07-23-2022 Mycoses (6 sources) Tinea pedis; Translations: [Tinea pedis] 07-31-2022 Episodic Nausea and vomiting (1 source) Nausea; Translations: [Nausea] Onset: 07-22-2022 Episodic Open wounds of head; neck; and trunk (6 sources) Laceration - injury; Translations: [Laceration] 03-06-2015 Episodic Other bone disease and musculoskeletal deformities (6 sources) Calcaneal apophysitis; Translations: [Juvenile osteochondrosis of tarsus, left ankle] 07-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 Chronic Other bone disease and musculoskeletal deformities (1 source) Juvenile osteochondrosis of tarsus, left ankle; Translations: [Juvenile osteochondrosis of tarsus, left ankle] Onset: 08-29-2022 Chronic Other connective tissue disease (2 sources) Pain in right foot; Translations: [Pain in both feet] Onset: 06-07-2022 Episodic Other connective tissue disease (2 sources) Pain in left foot; Translations: [Pain in both feet] Onset: 06-07-2022 Episodic Other connective tissue disease (8 sources) Foot pain; Translations: [Pain in unspecified foot] Onset: 07-24-2022 Episodic Other connective tissue disease (3 sources) Chronic pain of left foot; Translations: [Pain in left foot] 08-18-2022 Episodic Other connective tissue disease (2 sources) Plantar fasciitis; Translations: [Plantar fascial fibromatosis] 08-22-2022 Episodic Other connective tissue disease (1 source) Plantar fascial fibromatosis; Translations: [Plantar fascial fibromatosis] Onset: 08-29-2022 Episodic Other nervous system disorders (3 sources) Left tarsal tunnel syndrome; Translations: [Tarsal tunnel syndrome, left lower limb] 08-18-2022 Chronic Other nervous system disorders (1 source) Other chronic pain; Translations: [Other chronic pain] Onset: 08-29-2022 Chronic Other nutritional; endocrine; and metabolic disorders (1 source) Obesity; Translations: [Obesity, unspecified] Onset: 04-13-2016 04-13-2016 Chronic Schizophrenia and other psychotic disorders (9 sources) Schizophrenia; Translations: [Schizophrenia, unspecified] Onset: 03-31-2016 07-17-2022 Chronic Unclassified (1 source) Housing instability; Translations: [Housing instability] Onset: 06-07-2022 Viral infection (1 source) Disease caused by 2019-nCoV; Translations: [COVID-19] 02-16-2023 Episodic Past or Other Problems Problem Classification Problem Date Documented Da te Episodic/Chronic Abdominal pain (5 sources) Abdominal pain; Translations: [Unspecified abdominal pain] Onset: 07-08-2009 07-08-2009 Episodic Gastrointestinal hemorrhage (1 source) Rectal hemorrhage; Translations: [Hemorrhage of anus and rectum] Onset: 04-05-2016 04-05-2016 Episodic Other and unspecified benign neoplasm (1 source) Benign neoplasm of stomach; Translations: [Benign neoplasm of stomach] Onset: 03-24-2011 03-24-2011 Episodic Other nervous system disorders (1 source) H/O: epilepsy; Translations: [Personal history of other diseases of the nervous system and sense organs] Onset: 03-31-2016 03-31-2016 Episodic Results Test Name Value Interpretation Reference Range Facil ity CNOVon 03-24-2023 CNOV Office Visit (UCWSTR ) SAMIR AVILA ([id number]) 1975 M Homeless Date Time Provider Department 03/24/23 10:45 AM [facility] During your visit today, we recorded the following information about you: Temperature Pulse Respiration Blood pressure 97.2 degrees 101/minute 16/minute 138/96 Weight 99.1 kg Luli Elizabeth APRN.CNP 03/24/2023 11:05 AM Signed Nontoxic-appearing male presents urgent care chief plaint dizziness. Duration of symptoms today. Associated symptoms nausea and dizzy. Patient states does not feel good. Does not know what is wrong with him. No syncopal episodes no chest pain or shortness of breath. Most prominent symptom today is dizziness. Denies history of dizziness like this in the past. With presenting symptoms I recommend patient be seen ED for further evaluation care. Will be seen at [facility]. Luli Elizabeth APRN.CNP Allergies As of Date: 03/24/2023 Noted Allergy Reaction ASPIRIN 12/13/2004 11 - Vomiting RITALIN (METHYLPHENIDATE HCL) 12/13/2004 8 - GI Upset Date Reviewed: 03/24/2023 Reviewed by: Luli Elizabeth APRN.[employer] - Fully Assessed Reason for Visit: Acute Visit [896] Cmt: C/O feeling light headed, nauseated "don't feel good" x 2 days Primary Visit Diagnosis:Dizziness [R42] Prescriptions as of 03/24/2023 - Benzonatate 200 mg capsule Take 1 capsule by mouth three times daily as needed. - guaiFENesin (MUCINEX) 600 mg 12 hr tablet Take 2 tablets by mouth twice daily. - lisinopril (ZESTRIL, PRINIVIL) 10 mg tablet Take 1 tablet by mouth once daily. - risperiDONE (RISPERDAL) 1 mg tablet Take 1 tablet by mouth once daily. 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] 03/24/2011 Hypertension [I10] 05/20/2012 Paranoid schizophrenia (HCC) [F20.0] 03/31/2016 History of epilepsy [Z86.69] 03/31/2016 Epigastric pain [R10.13] 04/05/2016 Blood per rectum [K62.5] 04/05/2016 Non morbid obesity [E66.9] 04/13/2016 Encounter Status:Closed by LLUI ELIZABETH on 03/24/23 [facility] Influenza virus A and B and SARS-CoV-2 (COVID-19) Ag panel - Upper respiratory specimOrdered By: Poncho Rizzo on 02-15-2023 SARS-CoV-2 & FLU Antigen (Rapid) SARS-CoV-2 (COVID 19) [facility] Emergency Department Summary on 08-22-2022 Emergency Department Summary [facility] Medical Records Department [address] [place] [address] Emergency Department Summary 08/22/22 MR#: [id number] Acct: [id number] Name: SAMIR AVILA Rep #: [id number] : 1975 46 From: Poncho Rizzo MD PCP: Dr. Manuel Truong, Status:REG ER Location: ED HPI History of Present Illness Chief Complaint: Lower Extremity Injury Informant: patient Narrative Narrative: Foot pain for months. This is his fifth or so visit here in the emergency department in the last couple months for the same thing. He has been referred to podiatry. He states he has an appointment but has not seen them yet. He denies any new symptoms. [facility] Medical History Schizophrenia Home Medications NK 08/18/22 [History Last Taken Unknown] Allergy/AdvReac Type Severity Reaction Status Date / Time methylphenidate HCl AdvReac Nausea Verified 08/22/22 02:18 [From Ritalin] Social History Smoking Status: Current some day smoker tobacco type: cigarettes ROS ROS ED Constitutional Constitutional ED: Denies chills or fever(s) Musculoskeletal Musculoskeletal: Reports extremity pain; Denies neck pain Integumentary Denies Abrasions, rash or wounds Neurologic Neurologic: Denies paresthesias or weakness EXAM Physical Exam Const Vital Signs: 08/22/22 02:16 Temperature 99 F Temperature Source Temporal Pulse Rate 85 Respiratory Rate 16 Blood Pressure 158/92 H Blood Pressure Mean 114 Pulse Ox 98 Oxygen Delivery Method Room Air Positive well nourished, well developed and unkempt General Appearance ED: unkempt, well developed and NAD Neck full ROM and supple Back/Spine normal ROM and normal to inspection Extremity normal to inspection and full ROM Extremity Narrative: Tender at the calcaneus and to the posterior aspect of the arch at the plantar aspect of the left foot. Skin is normal no lesions no abscess no signs of cellulitis. Full range of motion without difficulty, neurovascularly intact distally, no tenderness at Achilles. Neuro oriented x3, no focal motor deficits and no sensory deficits noted Sensorium / Orientation: alert Psych mental status grossly normal and thought process normal Appearance: unkempt Skin no wounds Rashes: no rashes MDM MDM MDM Narrative Medical decision making narrative: Patient is here at 2 AM for this problem that he continues to return to the ER for. I am giving him an injection of Depo-Medrol 40 mg and advised him to continue following up with podiatry, and to look for [id number] shoe insole inserts. Discharge Plan Triage Chief Complaint: Lower Extremity Injury ED Provider: Poncho Rizzo Dx/Rx/DC Orders Clinical Impression: Plantar fasciitis of left foot Instructions: ED Plantar Fasciitis Prescriptions: No Action NK Primary Care Provider: Manuel Truong Referrals: Manuel Truong DO [Primary Care Provider] - Luli Obrien DPM [Med Staff - Active Staff] - Keep Jesus appointment Disposition Disposition: Home, Self Care What to do if you have Problems For any increased pain, shortness of breath, bleeding, nausea or vomiting, chest pain, or any unexpected problems, contact your Primary Care Provider. Call [facility] ([phone]) or report to the closest Emergency Room. Call 911 if necessary. 08/22/22 0309 Cosigner Signature (if applicable): CC: Dr. Manuel Truong DO Signed Normal [facility] Emergency Department Summary on 08-18-2022 Emergency Department Summary [facility] Medical Records Department [address] [place] [address] Emergency Department Summary 08/18/22 MR#: [id number] Acct: [id number] Name: SAMIR AVILA Rep #: [id number] : 1975 46 From: Volodymyr Paz DO PCP: Dr. Manuel Truong DO Status:DEP ER Location: ED HPI History of Present Illness Chief Complaint: Lower Extremity Injury Narrative Narrative: Patient is a 46-year-old male with past medical history of schizophrenia who presents with complaint of left foot pain. Patient has been seen in the ER secondary to this in the past with negative x- rays and he fails to follow-up with the podiatry as directed. He states there has been no injury and he denies any fevers or chills or discoloration to the foot. He states he has pain when he is laying down but more so when he ambulates. He states the pain will go from his heel/ankle underneath his foot towards his toes. He states it does not improve with recurrent ambulation but simply seems to worsen the more he stands or walks. [facility] and he was advised to come to the hospital for evaluation so he presents at this time [facility] Medical History Schizophrenia Home Medications NK 08/18/22 [History Last Taken Unknown] Allergy/AdvReac Type Severity Reaction Status Date / Time methylphenidate HCl AdvReac Nausea Verified 08/18/22 02:05 [From Ritalin] Social History Smoking Status: Current some day smoker tobacco type: cigarettes ROS ROS ED Constitutional Constitutional ED: Denies chills or fever(s) ENT ENT ED: Denies sore throat Cardiovascular Cardiovascular: Denies chest pain Respiratory/Chest Respiratory/Chest: Denies cough or dyspnea Gastrointestinal Gastrointestinal: Denies abdominal pain, diarrhea, nausea or vomiting Genitourinary Genitourinary ED: Denies dysuria Musculoskeletal Musculoskeletal: Reports other Details: Positive left foot pain Integumentary Denies Abrasions or rash Neurologic Neurologic: Denies headache(s) or paresthesias Hematologic/Lymphatic Hematologic/Lymphatic : Denies easy bleeding or easy bruising EXAM Physical Exam Const Vital Signs: 08/18/22 02:06 Temperature 97.2 F L Temperature Source Temporal Pulse Rate 83 Respiratory Rate 18 Blood Pressure 142/98 H Blood Pressure Mean 112 Pulse Ox 98 Oxygen Delivery Method Room Air Positive well nourished and well developed General Appearance ED: well developed Eyes PERRL and EOMs intact bilaterally Neck supple Resp normal respiratory effort and clear to auscultation bilaterally Cardio regular rate and regular rhythm Extremity Extremity Narrative: Left lower extremity is neurovascularly intact. Achilles tendon is intact and ankle ligaments are stable. Patient has plus 2 out of 4 dorsalis pedis pulses bilaterally. Capillary refill is less than 3 seconds. No overlying erythema or warmth to suggest infection no induration or fluctuance to suggest abscess and no lymphangitic streaking. Patient has mild soft tissue skin breakdown in between the webbing of his toes concerning for mild tinea pedis. There is pain with palpation along the posterior aspect of the medial malleolus which tracks down along the Achilles tendon and calcaneus to the midportion of the foot. There is no obvious ecchymosis or soft tissue swelling or crepitance palpated Neuro oriented x3 and CN's II-XII intact bilaterally Sensorium / Orientation: alert Psych Psych Narrative: Patient has a flat affect Skin no rashes or lesions noted MDM MDM MDM Narrative Medical decision making narrative: Patient presented to the ER afebrile with complaint of persistent/chronic left foot pain with no known injury. Differential diagnosis and includes heel spur versus acute foreign body versus fracture versus cellulitis versus tarsal tunnel syndrome versus osteomyelitis. By exam there is no erythema or warmth so cellulitis and abscess are less likely as well as osteomyelitis. There is no signs of puncture wound or injury so concern for foreign body and fracture is low as well. With pain tracking along the medial malleolus towards the bottom portion of the foot there is concern this is tarsal tunnel syndrome but if so that is treated conservatively and he does not need further work-up or admission. X-ray was obtained which revealed no clinically significant changes and was compared to one from roughly 6 weeks ago which revealed also no fracture or dislocation foreign body or signs of osteomyelitis. Therefore at this time there is no need to further evaluate the patient in the ER and he was instructed that he has to follow-up with the podiatry (more content not included)... Normal [facility] Foot min 3 [facility]son Foot min 3 Views [facility] Imaging Services [address] [place] [address] Foot min 3 Views MR#: [id number] Acct: [id number] Name: SAMIR AVILA Rep #: [id number] : 1975 M 46 From: Garry Rockwell PCP: Dr. Manuel Truong, Status: REG ER Study: Foot min 3 Views Date of Exam: 08/18/22 Exam# [id number] Ordering Dr: Volodymyr Paz DO EXAM: XR LEFT FOOT COMPLETE, 3 OR MORE VIEWS CLINICAL INDICATION: pain TECHNIQUE: Frontal, lateral and oblique views of the left foot. COMPARISON: 07/09/2022. FINDINGS: BONES/JOINTS: Unremarkable. No acute fracture. No subluxation. Normal alignment. Preservation of the joint space. No sclerotic or destructive changes observed. SOFT TISSUES: Unremarkable. No soft tissue swelling or gas. No radiopaque foreign body. RAD/Foot min 3 Views IMPRESSION: Negative left foot x-rays. Electronically Signed: Garry Silver MD at 3:16 EDT , CC: Dr. Manuel Truong DO; Volodymyr Paz DO Commissioner Of Officials: Signed Normal [facility] Emergency Department Summary on 08-05-2022 Emergency Department Summary [facility] Medical Records Department [address] [place] [address] Emergency Department Summary 08/05/22 MR#: [id number] Acct: [id number] Name: SAMIR AVILA Rep #: [id number] : 1975 46 From: Volodymyr Paz DO PCP: Dr. Manuel Truong DO Status:REG ER Location: ED HPI History of Present Illness Chief Complaint: Lower Extremity Injury Narrative Narrative: Patient is a 46-year-old male with past medical history of schizophrenia as well as homelessness. He was seen in the ER at the end of June and had x-rays of his feet which showed no acute findings. Since that time he was seen on July 31 and August 03 secondary to foot pain and burning. Patient states that the symptoms have persisted that he has not followed up with podiatry and because of the persistent symptoms comes in for repeat evaluation [facility] Medical History Schizophrenia Home Medications lisinopril 10 mg tablet (Prinivil) 10 mg PO DAILY 06/12/16 [History Last Taken Unknown] risperidone 1 mg tablet 1 mg PO DAILY 06/12/16 [History Last Taken Unknown] clindamycin HCl 150 mg capsule 300 mg PO 4X/DAY ##80 09/02/16 [Rx Last Taken Unknown] ibuprofen 600 mg tablet 600 mg PO 4X/DAY PRN pain #40 tabs 07/09/22 [Rx Last Taken Unknown] Allergy/AdvReac Type Severity Reaction Status Date / Time methylphenidate HCl AdvReac Nausea Verified 08/03/22 02:22 [From Ritalin] Social History Smoking Status: Current some day smoker tobacco type: cigarettes ROS ROS ED Constitutional Constitutional ED: Denies chills or fever(s) ENT ENT ED: Denies sore throat Cardiovascular Cardiovascular: Denies chest pain Respiratory/Chest Respiratory/Chest: Denies cough or dyspnea Gastrointestinal Gastrointestinal: Denies abdominal pain, diarrhea, nausea or vomiting Genitourinary Genitourinary ED: Denies dysuria Musculoskeletal Musculoskeletal: Reports other Details: Positive bilateral foot pain Integumentary Denies rash Neurologic Neurologic: Denies headache(s) Hematologic/Lymphatic Hematologic/Lymphatic : Denies easy bleeding or easy bruising EXAM Physical Exam Const Vital Signs: 08/04/22 23:41 Temperature 98.0 F Temperature Source Temporal Pulse Rate 99 Respiratory Rate 16 Blood Pressure 152/87 H Blood Pressure Mean 108 Pulse Ox 99 Oxygen Delivery Method Room Air Positive well nourished and well developed General Appearance ED: well developed Eyes PERRL and EOMs intact bilaterally Neck supple Resp normal respiratory effort and clear to auscultation bilaterally Cardio regular rate and regular rhythm Extremity Extremity Narrative: Bilateral lower extremities are neurovascularly intact. There is no obvious bony deformity or joint effusion. Capillary refill is less than 3 seconds bilaterally. No subungual hematomas noted. No overlying abrasions or ecchymosis. Patient has mild tinea pedis without secondary changes to suggest infection. No ulcerative lesions. No erythema or warmth or lymphangitic streaking. Neuro oriented x3 and CN's II-XII intact bilaterally Sensorium / Orientation: alert Psych Psych Narrative: Patient has a flat affect Skin Skin Narrative: Soft tissue changes to the bilateral feet consistent with tinea pedis otherwise normal MDM MDM MDM Narrative Medical decision making narrative: Patient presented to the ER hypertensive otherwise with stable vitals. He denied any recent trauma. He states the pain is more of a "burning" sensation and is present in both feet. He states he has been using the cream without any symptom improvement. He states there is been no change to his symptoms such as increased severity or waxing and waning nature but because of his persistent nature comes in for repeat evaluation. Differential diagnosis includes cellulitis abscess osteomyelitis DVT acute arterial occlusion or gout. The patient does not have asymmetric edema there is negative Homans' sign bilaterally there is no erythema or warmth or streaking no induration or fluctuance noted and therefore concerns for infectious process or venous or arterial occlusion are low. As there is no report or signs of trauma and my concern for osteomyelitis is low there is no need for repeat x-ray . he does have changes consistent with tinea pedis with this is mild nature without systemic symptoms and therefore he needs to continue to use the cream that was prescribed at the previous evaluation. I do not feel there is need for further work-up and he can have this further evaluated by podiatry on an outpatient basis. The patient was informed that there is no grounds for further testing or admission which is what he was requesting at this time will be (more content not included)... Normal [facility] Emergency Department Summary on 08-03-2022 Emergency Department Summary [facility] Medical Records Department [address] [place] [address] Emergency Department Summary 08/03/22 MR#: [id number] Acct: [id number] Name: SAMIR AVILA Rep #: [id number] : 1975 46 From: Ish Hernandez DO PCP: Dr. Manuel Truong DO Status:REG ER Location: ED HPI History of Present Illness Chief Complaint: Lower Extremity Injury Narrative Narrative: 46-year-old male here for foot pain. Notes bilateral foot pain. Denies any swelling. Denies any discoloration. Denies any recent injury or trauma. Denies any fever. Denies any loss of sensa tion. The patient denies recent surgery in the last 4 weeks or immobilization in the last 3 days, denies previous diagnosis of DVT or PE, he denies hemoptysis to me, unilateral leg swelling or malignancy with treatment the last 6 months. No estrogen use noted. [facility] Medical History (Updated 08/03/22 @ 02:[address] Ish Hernandez DO) Schizophrenia Medical History no medical history Home Medications lisinopril 10 mg tablet (Prinivil) 10 mg PO DAILY 06/12/16 [History Last Taken Unknown] risperidone 1 mg tablet 1 mg PO DAILY 06/12/16 [History Last Taken Unknown] clindamycin HCl 150 mg capsule 300 mg PO 4X/DAY ##80 09/02/16 [Rx Last Taken Unknown] ibuprofen 600 mg tablet 600 mg PO 4X/DAY PRN pain #40 tabs 07/09/22 [Rx Last Taken Unknown] Allergy/AdvReac Type Severity Reaction Status Date / Time methylphenidate HCl AdvReac Nausea Verified 08/03/22 02:22 [From Ritalin] Social History Smoking Status: Current some day smoker tobacco type: cigarettes ROS ROS ED ROS Narrative Constitutional: Denies fever HEENT: Denies sore throat Neck: Denies neck pain Cardiovascular: Denies chest pain, syncope Respiratory: Denies shortness of breath GI: Denies nausea vomiting or abdominal pain : Denies changes in urinary habits Musculoskeletal: Endorses bilateral foot pain Neurologic: Denies numbness weakness or loss of sensation Skin denies rash EXAM Physical Exam Narrative Exam Narrative: Nursing triage notes reviewed, Vital signs reviewed Constitutional: please see [facility] HENT: MMM Eyes: Pupils equal round and reactive to light, Extraocular muscles intact Neck: No stridor, no JVD, full neck ROM Lungs: Clear to auscultation, No wheezing or rales. No increased work of breathing, no conversational dyspnea, no accessory muscle use, no nasal flaring. No respiratory distress noted Heart: Regular rate and rhythm, No murmurs, No rubs and No gallops, 2+ distal pulses (radial, femoral, posterior tibial) in all extremities Abdomen: Soft, there is no tenderness, rigidity, rebound or guarding, no obvious peritoneal signs, no palpable pulsatile abdominal masses, no auscultated abdominal bruit : No CVAT Extremities: No edema, no obvious deformities, intact plantar dorsiflexion, no calf tenderness, compartments are soft Neuro: Intact sensation L1-S1 dermatomal distributions. Intact 5/5 strength in hip flexion (T12- L3). Knee extension (L2-L4). Ankle dorsiflexion (L4-L5). Ankle plantar flexion (S1). Great toe extension (L5). 2+ patellar and Achilles DTRs. Skin: No rash or lesions noted Const Vital Signs: 08/03/22 02:15 Temperature 98.6 F Temperature Source Temporal Pulse Rate 77 Respiratory Rate 16 Blood Pressure 167/99 H Blood Pressure Mean 121 Pulse Ox 99 Oxygen Delivery Method Room Air [facility] [place] Narrative Medical decision making narrative: Chief Complaint: Bilateral foot burning External records reviewed: Seen on 07/31 for similar symptoms. Diagnosed athlete's foot I considered the following differential diagnosis: Trench foot, athlete's foot, DVT, carbon syndrome, arterial occlusion, fracture dislocation, cellulitis, necrotizing fasciitis The patient was hemodynamically stable, afebrile, nontoxic-appearing exam consistent with prior episode of athlete's foot. No clinical evidence of arterial occlusion, compartment syndrome, fracture dislocation, DVT, necrotizing fasciitis, cellulitis. Encouraged him to continue his treatments. The patient was given clean socks. There is no acute life limiting etiology could be ascertained. In terms the patient has a complaint of coughing up blood. He denies this to me. Factors affecting care: History of schizophrenia, hypertension Social determinants of health: Homeless History obtained from others: None Shared decision making: I will have a discussion with the patient and or visitors regarding risk/benefits of further testing or admission. They will be made aware of of the risk/benefits inherent in this decision they will be given the opportunity to voice understanding. Consults: None Discharge Plan Triage Chief Compla (more content not included)... Normal [facility] Emergency Department Summary on 07-31-2022 Emergency Department Summary [facility] Medical Records Department [address] [place] [address] Emergency Department Summary 07/31/22 MR#: [id number] Acct: [id number] Name: SAMIR AVILA Rep #: [id number] : 1975 46 From: Sohail Pitts MD PCP: Dr. Manuel Truong, DO Status:DEP ER Location: ED HPI History of Present Illness Chief Complaint: Lower Extremity Injury Informant: patient Narrative Narrative: Patient presents with bilateral foot pain. He states both of them hurt mostly by the heels. He denies any specific trauma. He states he is homeless and he walks around a lot. He states his shoes do fit him well. He is not having blistering. He has gotten them wet. No fevers or chills. No swelling. No numbness or tingling. No history of DVT or PE. He states he has been seen before for this. He did have x-rays of the left foot few weeks ago. Again, he denies any specific trauma. PFSH PFSH Home Medications lisinopril 10 mg tablet (Prinivil) 10 mg PO DAILY 06/12/16 [History Last Taken Unknown] risperidone 1 mg tablet 1 mg PO DAILY 06/12/16 [History Last Taken Unknown] clindamycin HCl 150 mg capsule 300 mg PO 4X/DAY ##80 09/02/16 [Rx Last Taken Unknown] ibuprofen 600 mg tablet 600 mg PO 4X/DAY PRN pain #40 tabs 07/09/22 [Rx Last Taken Unknown] Allergy/AdvReac Type Severity Reaction Status Date / Time methylphenidate HCl AdvReac Nausea Verified 07/31/22 01:45 [From Ritalin] Social History Smoking Status: Current some day smoker tobacco type: cigarettes ROS ROS ED Constitutional Constitutional ED: Denies chills or fever(s) Cardiovascular Cardiovascular: Denies chest pain Respiratory/Chest Respiratory/Chest: Denies cough or dyspnea Gastrointestinal Gastrointestinal: Denies nausea or vomiting Genitourinary Genitourinary ED: Denies hematuria Musculoskeletal Musculoskeletal: Reports other Details: See history of present illness. ; Denies back pain or neck pain Integumentary Denies rash Neurologic Neurologic: Denies paresthesias Hematologic/Lymphatic Hematologic/Lymphatic : Denies easy bleeding, easy bruising or lymphadenopathy Allergic/Immunologic Allergic/Immunologic ED: Denies urticaria EXAM Physical Exam Narrative Exam Narrative: Patient is sound asleep when I walk in. He is lying comfortably in the bed. HEENT shows no trauma Lungs are clear bilaterally. Easy unlabored breathing. Normal saturations. Heart is regular rate about 75. I hear no murmur. Abdomen is soft. back shows no tenderness Extremities show no edema cords or color changes. There is mild redness to the soles of both feet. There is a little bit of tinea pedis between the toes but no sign of secondary infection. There is no swelling. There is wrinkling of the skin consistent with them being wet. There does not appear to be any sensory change or hyperesthesia. Const Vital Signs: 07/31/22 01:41 Temperature 98.0 F Temperature Source Temporal Pulse Rate 82 Respiratory Rate 18 Blood Pressure 156/90 H Blood Pressure Mean 112 Pulse Ox 98 Oxygen Delivery Method Room Air MDM MDM MDM Narrative Medical decision making narrative: Patient states both feet have been hurting him for a long time. There is nothing new or different today. He states he does do a lot of walking. I do not see any sign of blistering or poor fitting shoes. But I think some of this comes from being chronically moist. Some may come from athlete's foot although most of his pain is actually back by the heels and not the toes. I do not think we need to repeat x-rays. I think limiting activity and walking would limit the discomfort. I cannot force him not to walk. I can offer some meds for the athlete's foot. Patient does have social factors that affect his healing in terms of being homeless. This does limit his ability to rest during the day and not walk around a lot. I will see if we do have some socks that may at least offer him a dry option so he can alternate. Discharge Plan Triage Chief Complaint: Lower Extremity Injury ED Provider: Sohail Pitts Dx/Rx/DC Orders Clinical Impression: Bilateral foot pain, Athlete's foot, Homelessness Instructions: ED Athlete's Foot Prescriptions: No Action lisinopril [Prinivil] 10 MG tablet 10 mg PO DAILY risperidone 1 MG tablet 1 mg PO DAILY clindamycin HCl 150 MG capsule 300 mg PO 4X/DAY Qty: 80 0RF ibuprofen 600 mg tablet 600 mg PO 4X/DAY PRN (Reason: pain) Qty: 40 0RF Primary Care Provider: Manuel Truong Referrals: Manuel Truong, [Primary Care Provider] - 1 Week if not improving Activity Restrictions/Addition al Instructions: Try to limit walking if able. Try to dry out shoes and use dry socks as much as able. Disposition Disposition: H (more content not included)... Normal [facility] ED.PDOCon 07-23-2022 ED.PDOC SAMIR AVILA [id number] Attending provider: CHELSIE ER [id number] Tyrone Tucker 1975 46 DOS: 07/23/22 Hx/Exam - History of Present Illness Chief Complaint: OTHER Additional Comments: This is a 46-year-old male presenting to the emergency department complaining of headache. States headache is bifrontal, diffuse, 8/10 intensity. Patient states it was gradual onset and progressive. Not associated with fever or neck stiffness. Denies injury. Patient asked staff of a local gas station and called EMS for him after he walked into the station. Patient is arriving by EMS, run sheet ordered, reviewed, contributed to the care management of this patient. Patient is unhoused and resides in [place]. He is in [place] because his daughter lives in [place], she works nights, and will not allow him to stay at her house. Patient therefore has been sleeping outside. - Review of Systems Other ROS: Patient currently denies; fever, vision change, sore throat, cough, hemoptysis, melena, hematochezia, urinary retention, weakness, numbness, bruising, sneezing, itching, depression, or lethargy, all other systems are reviewed and negative - Social History Smoking Status: Former Smoker - Physical Exam Other Exam Findings: General: Awake alert cooperative, no distress. Fluent speech, no conversational dyspnea. HEENT: Head normocephalic atraumatic with no palpable skull abnormalities raccoon eyes or montaño sign. Oral mucosa pink moist with no signs of dehydration. Eyes PERRLA, EOMI. Sclera non-icteric. Neck: Trachea is midline with no JVD or nuchal rigidity. No lymphadenopathy. No bruits. Cardiovascular: Heart regular rate and rhythm with no murmurs rubs or gallops. Respiratory: Clear to auscultation, no wheezes, rhonchi or rales. No adventitious breath sounds, symmetrical chest wall excursion. No signs of distress. Abdomen: Soft, no rigidity, no guarding, no pulsatile abdominal masses. Patient has intact bowel sounds ?4 quadrants. Negative Donahue sign, negative McBurney's point tenderness. No peritoneal findings. Extremities: No cyanosis clubbing or edema. Vascular: Pulses intact ?4 extremities with no radial femoral delay. No palpable cords, Nneka's sign or signs of DVT. Neurologic: GCS 15, cranial nerves II through XII intact, sensory intact C3-S3, strength equal in both upper and lower extremities. No focal motor or sensory deficits measurable on exam. Back: No meningeal findings. No spasm, bruising, abrasions, or outward signs of trauma. Joints: No angular deformities, grossly normal. No swelling, erythema, or signs of septic arthritis. Skin: Warm and dry, no pallor mottling or rashes. Psych: Euthymic, with normal affect. - Source of History Source of History: Nursing Notes/Vital Signs/Triage Reviewed and Agree Source of History: Additional Hx from Ambulance, Old Medical Records Reviewed Note(s) - Physician Notes Additional Notes, See Orders for Details: 07/23/22 04:01 Patient presents emergency department secondary to headache, given the patient's presenting complaint, differential includes migraine, tension headache, cluster headache, meningitis, retropharyngeal abscess, intracranial hemorrhage, hydrocephalus, space-occupying lesions such as glioblastoma, meningioma, astrocytoma, CVA, basilar artery dissection, cerebral venous thrombosis, hypertension, depression, giant cell arteritis, dehydration, withdrawal, ocular migraine, TB, sarcoidosis, connective tissue disorder, meningitis, aneurysm, allergy, exposure such as CO. patient will be provided with a dose of acetaminophen and ibuprofen. Patient has a benign physical exam, he has no focal neurologic deficits. While here in the department the patient has been in no distress, upon arrival to the exam room he immediately rolls over and tries to go to sleep. Patient has been requesting comfort items such as pillows and blankets so that he can be more comfortable while he sleeps. Patient is manifesting no physical exam evidence of an acute life-threatening process. The patient appears to be in no distress. He has a benign reassuring physical exam, appears to be stable for discharge. I recommend he follow-up with his PMD, Dr. Truong, in 2 to 4 days. Return indications been expressed. The patient be discharged in stable condition. Based upon my history, physical exam, evaluation and judgement regarding the aforementioned differentials, at the time of this assessment, I do not see evidence to support the presence of any life, neurologic, or limb threatening pathology in my considered differentials. Alternate non life threatening pathology has been considered, and has been ruled out based upon the findings of my evaluation. While there may be remaining pathology considered within the differential, this is not life threatening, not limb threatening, and do (more content not included)... Normal [facility] ABDOMEN/PELVIS W/CONTRASTon 07-22-2022 ABDOMEN/PELVIS W/CONTRAST MARGARITASAMIR E Male [id number] Ordering physician: Lucinda Kenney LOC:ER [id number] Attending physician: 1975 46 DO S: 07/22/22 Acc#: [id number] Exam/Proc: ABDOMEN/PELVIS W/CONTRAST Dept: COMPUTED TOMOGRAPHY EXAMINATION: CT OF THE ABDOMEN AND PELVIS WITH CONTRAST 07/22/2022 1:50 pm TECHNIQUE: CT of the abdomen and pelvis was performed with the administration of intravenous contrast. Multiplanar reformatted images are provided for review. Automated exposure control, iterative reconstruction, and/or weight based adjustment of the mA/kV was utilized to reduce the radiation dose to as low as reasonably achievable. COMPARISON: None. HISTORY: ORDERING SYSTEM PROVIDED HISTORY: TECHNOLOGIST PROVIDED HISTORY: Reason for Exam: mid abdominal pain with nausea FINDINGS: Minor degenerative changes are present at the lower lumbar spine. Lung bases are unremarkable. A small right lobe liver cyst is noted. Cholelithiasis is visible. Spleen, adrenal glands and pancreas are unremarkable. Kidneys are normal as well. No adenopathy, free air or free fluid is visible. The urinary bladder is grossly normal. No GI tract abnormality is visible. No additional contributory finding. IMPRESSION: No acute abnormality seen on this exam. Cholelithiasis. Electronically signed By Garry El MD 07/22/2022 1:54:45 PM EST Workstation ID : [id number] REPORT SIGNATURE ON FILE Electronically Signed Date/Time: 07/22/22 1354 Dictated Date/time: 07/22/22 1351 CC: Normal [facility] CBC with AUTO DIFFon 023 BAS0 % 0.80 % Normal 0-2 [facility] Comment on above: Performed By: #### C BC #### [facility] [address] [place] [address] Basophils (Bld) [#/Vol] 0.0 10*3/uL Normal 0-0.1 [facility] Comment on above: Performed By: #### C BC #### [facility] [address] [place] [address] Eosinophils (Bld) [#/Vol] 0.1 10*3/uL Normal 0.0-1.80 [facility] Comment on above: Performed By: #### C BC #### [facility] [address] [place] [address] Eosinophils/100 WBC (Bld) 1.0 % Normal 0-8 [facility] Comment on above: Performed By: #### C BC #### [facility] [address] [place] [address] GRAN # 3.9 K/uL Normal 2.2-9.1 [facility] Comment on above: Performed By: #### C BC #### [facility] [address] [place] [address] GRAN % 71.5 % Normal 42-80 [facility] Comment on above: Performed By: #### C BC #### [facility] [address] [place] [address] Hematocrit (Bld) [Volume fraction] 37.5 % Low 41.0-53.0 [facility] Comment on above: Performed By: #### C BC #### [facility] [address] [place] [address] Hemoglobin (Bld) [Mass/Vol] 13.1 g/dL Low 14.0-18.0 [facility] Comment on above: Performed By: #### C BC #### [address] [place] [address] Lymphocytes (Bld) [#/Vol] 1.1 10*3/uL Normal 1.0-4.0 [facility] Comment on above: Performed By: #### C BC #### [address] [place] [address] Lymphocytes/100 WBC (Bld) 20.7 % Normal 16-48 [facility] Comment on above: Performed By: #### C BC #### [address] [place] [address] MCV (RBC) [Entitic vol] 88.0 fL Normal 80-97 [facility] Comment on above: Performed By: #### C BC #### [address] [place] [address] MEAN CORPUSCULAR HGB 30.9 pg Normal 26.0-32.0 [facility] Comment on above: Performed By: #### C BC #### [address] [place] [address] MEAN CORPUSCULAR HGB CONC 35.1 g/dL Normal 31.0-36.0 [facility] Comment on above: Performed By: #### C BC #### [address] [place] [address] MONO DISTRIB WIDTH 15.58 Normal 0-20 [facility] Comment on above: Result Comment: For ED adult patients suspected of sepsis, MDW<=20.0 does not rule out sepsis or risk of sepsis Performed By: #### C BC #### [facility] [address] [place] [address] Monocytes (Bld) [#/Vol] 0.3 10*3/uL Normal 0.1-1.7 [facility] Comment on above: Performed By: #### C BC #### [facility] [address] [place] [address] Monocytes/100 WBC (Bld) 6.0 % Normal 3-9 [facility] Comment on above: Performed By: #### C BC #### [facility] [address] [place] [address] Platelet mean volume (Bld) [Entitic vol] 8.0 fL Normal 6.4-10.5 [facility] Comment on above: Performed By: #### C BC #### [facility] [address] [place] [address] Platelets (Bld) [#/Vol] 221 10*3/uL Normal 140-450 [facility] Comment on above: Performed By: #### C BC #### [facility] [address] [place] [address] RBC (Bld) [#/Vol] 4.25 10*6/uL Low 4.40-6.30 [facility] Comment on above: Performed By: #### C BC #### [facility] [address] [place] [address] RED CELL DISTRI WIDTH 13.1 % Normal 11.0-15.5 [facility] Comment on above: Performed By: #### C BC #### [facility] [address] [place] [address] WBC (Bld) [#/Vol] 5.4 10*3/uL Normal 4.0-11.0 [facility] Comment on above: Performed By: #### C BC #### [facility] [address] [place] [address] COMPREHENSIVE METABOLIC PANE Martín 07-22-2022 Albumin [Mass/Vol] 3.4 g/dL Normal 3.4-5.0 [facility] Comment on above: Performed By: #### M N #### [facility] [address] [place] [address] Albumin/Globulin [Mass ratio] 1.0 {ratio} Low 1.1-1.8 [facility] Comment on above: Performed By: #### M N #### [facility] [address] [place] [address] ALP [Catalytic activity/Vol] 56 U/L Normal 45-117 [facility] Comment on above: Performed By: #### M N #### [facility] [address] [place] [address] ALT [Catalytic activity/Vol] 42 U/L Normal 12-78 [facility] Comment on above: Performed By: #### M N #### [facility] [address] [place] [address] Anion gap [Moles/Vol] 8.6 mmol/L Low 11-23 [facility] Comment on above: Performed By: #### M N #### [facility] [address] [place] [address] AST [Catalytic activity/Vol] 68 U/L High 15-37 [facility] Comment on above: Performed By: #### M N #### [facility] [address] [place] [address] Bilirubin [Mass/Vol] 0.4 mg/dL Normal 0.2-1.0 [facility] Comment on above: Performed By: #### M N #### [facility] [address] [place] [address] Calcium [Mass/Vol] 8.7 mg/dL Normal 8.5-10.1 [facility] Comment on above: Performed By: #### M N #### [facility] [address] [place] [address] Chloride [Moles/Vol] 107 mmol/L Normal 98-107 [facility] Comment on above: Performed By: #### M N #### [facility] [address] [place] [address] CO2 [Moles/Vol] 27.0 mmol/L Normal 21-32 [facility] Comment on above: Performed By: #### M N #### [facility] [address] [place] [address] Creatinine [Mass/Vol] 1.20 mg/dL Normal 0.7-1.3 [facility] Comment on above: Performed By: #### M N #### [facility] [address] [place] [address] GFR > 60.0 [facility] Comment on above: Performed By: #### M N #### [facility] [address] [place] [address] GFR AM > 60.0 [facility] Comment on above: Result Comment: THE NORMAL LEVEL OF GFR VARIES ACCORDING TO AGE, SEX, AND BODY SIZE. A GFR LEVEL OF LESS THAN 60 ML/MIN REPRESENTS LOSS OF THE ADULT LEVEL OF NORMAL KIDNEY FUNCTION. Performed By: #### M N #### [facility] [address] [place] [address] Globulin (S) [Mass/Vol] 3.4 g/dL Normal 2.5-4.6 [facility] Comment on above: Performed By: #### M N #### [facility] [address] [place] [address] Glucose [Mass/Vol] 120 mg/dL High 70-100 [facility] Comment on above: Performed By: #### M N #### [facility] [address] [place] [address] Potassium [Moles/Vol] 3.8 mmol/L Normal 3.5-5.1 [facility] Comment on above: Performed By: #### M N #### [facility] [address] [place] [address] Protein [Mass/Vol] 6.8 g/dL Normal 6.0-8.3 [facility] Comment on above: Performed By: #### M N #### [address] [place] [address] Sodium [Moles/Vol] 139 mmol/L Normal 136-145 [facility] Comment on above: Performed By: #### M N #### [address] [place] [address] Urea nitrogen [Mass/Vol] 16.0 mg/dL Normal 7-18 [facility] Comment on above: Performed By: #### M N #### [address] [place] [address] ED.PDOCon 07-22-2022 ED.PDOC SAMIR AVILA [id number] Attending provider: [facility] [id number] Lucinda Kenney 1975 46 DOS: 07/22/22 Hx/Exam - History of Present Illness Location: mid abdomen Symptom Duration: 1 Symptom Duration: Day(s) Onset of Symptoms: acute Intensity: mild-moderate Quality: achey Episode Frequency: constant Radiations: none Symptoms Improve with: none Symptoms Worse with: none Assoc Sxs/Pertinent Hx: nausea, last ate double whopper and onion rings less hr ago Patient/Family Denies: fevers, cp, sob, dizziness, flank pain, dysuria, v/d, blood stools - Review of Systems All Other Systems: Pertinent Positives in HPI, All Other Systems Negative Constitutional: Denies: Fever, Chills, Sweats, Weakness, Malaise Respiratory: Denies: Cough, Shortness of Breath, Wheezing Cardiovascular: Denies: Chest Pain, Palpitations, Light Headedness Gastrointestinal: Nausea, Abdominal Pain. Denies: Vomiting, Diarrhea, Constipation, Melena, Hematochezia Genitourinary: Denies: Dysuria, Frequency, Urgency, Hematuria, Incontinence, Retention Musculoskeletal: Denies: Back Pain Skin: Denies: Rash, Lesions, Jaundice, Laceration, Abrasion, Bruising Neurological: Denies: Headache, Weakness, Numbness, Incoordination, Change in Speech, Confusion, Seizures - Social History Smoking Status: Former Smoker - Physical Exam General Appearance: awake, alert, no apparent distress Eyes: PERRL, EOMI, conjunctivae clear Head, Ears, Nose, and Throat: pharynx normal, mucous membranes moist Neck: supple, full ROM Respiratory: lungs clear, no wheezes/rhonchi/rales , no respiratory distress, no accessory muscle use Cardiovascular: regular rate, rhythm, no murmur Abdomen/GI: non tender, soft, non-distended, normal bowel sounds, no organomegaly, no pulsatile mass, no peritoneal signs Back: no CVA tenderness Extremity: normal range of motion, non-tender, normal inspection, normal capillary refill Pulses: Radial: 2+ Neurologic: no motor/sensory deficits, normal gait, normal strength, normal sensation, speech clear/fluent Psychiatric: oriented x3, calm Skin Exam: warm/dry, normal color - Source of History Source of History: Nursing Notes/Vital Signs/Triage Reviewed and Agree Source of History: Old Medical Records Reviewed - History of Present Illness Chief Complaint: ABDOMINAL PAIN Additional Comments: No abdominal surgery history. Had last BM in our ER. (Lucinda Kenney) Note(s) - Physician Notes Additional Notes, See Orders for Details: 07/22/22 14:13 This visit was performed by both a physician and an APC. I personally evaluated and examined the patient. I performed all aspects of the MDM as documented. Signed: Bobby Linda MD (Bobby Linda) 07/22/22 12:57 MEDICAL DECISION MAKING Number and Complexity of Problems Differential Diagnosis: [X]-IBS, cholecystitis, appendicitis, colitis MDM Data External documents reviewed: [X]-no past ER records available My EKG Interpretation: [] My CT Interpretation: [] My X-ray Interpretation: [] My Ultrasound Interpretation: [] Decision rules/scored evaluated: [] Tests considered but not ordered: [] Discussed with: [X]-supervising physician Dr Linda Treatment and Disposition ED Course: [X]-see below Shared decision making: [X]-patient agreeable with treatment plan Social determinants: [X]-none Code status: [X]-full 07/22/22 13:47 07/22/22 07/22/22 07/22/22 13:11 13:11 13:11 WBC 5.4 Hgb 13.1 L Hct 37.5 L Plt Count 221 Sodium 139 Potassium 3.8 Chloride 107 Carbon Dioxide 27.0 Anion Gap 8.6 L BUN 16.0 Creatinine 1.20 Est GFR (Non-Af Amer) > 60.0 Glucose 120 H Calcium 8.7 Total Bilirubin 0.4 AST 68 H ALT 42 Alkaline Phosphatase 56 Lipase 207 07/22/22 13:59 Exam/Proc: ABDOMEN/PELVIS W/CONTRAST Dept: COMPUTED TOMOGRAPHY EXAMINATION: CT OF THE ABDOMEN AND PELVIS WITH CONTRAST 07/22/2022 1:50 pm TECHNIQUE: CT of the abdomen and pelvis was performed with the administration of intravenous contrast. Multiplanar reformatted images are provided for review. Automated exposure control, iterative reconstruction, and/or weight based adjustment of the mA/kV was utilized to reduce the radiation dose to as low as reasonably achievable. COMPARISON: None. HISTORY: ORDERING SYSTEM PROVIDED HISTORY: TECHNOLOGIST PROVIDED HISTORY: Reason for Exam: mid abdominal pain with nausea FINDINGS: Minor degenerative changes are present at the lower lumbar spine. Lung bases are unremarkable. A small right lobe liver cyst is noted. Cholelithiasis is visible. Spleen, adrenal glands and pancreas are unremarkable. Kidneys are normal as well. No adenopathy, free air or free fluid is visible. The urinary bladder is grossly normal. No GI tract abnormality is visible. No additional contributory finding. IMPRESSION: No acute abnormality seen on this exam. Cholelithiasis. Electronically signed (more content not included)... Normal [facility] LIPASEon 07-22-2022 Lipase [Catalytic activity/Vol] 207 U/L Normal 73-393 [facility] Comment on above: Performed By: #### L #### [address] [address] Laboratory studies (set)on 0 07-22-2022 Appearance (U) CLEAR [facility] Bilirubin Ql (U) NEGATIVE [facility] Color (U) [facility] Glucose Ql (U) NEGATIVE [facility] Hemoglobin Ql (U) NEGATIVE [facility] Ketones Ql (U) NEGATIVE [facility] Leukocyte esterase Test strip Ql (U) NEGATIVE [facility] Nitrite Ql (U) NEGATIVE [facility] pH (U) 8.0 [pH] 5.0-9.0 [facility] Protein Ql (U) NEGATIVE [facility] Specific gravity (U) [Rel density] 1.010 1.003-1.035 [facility] Urobilinogen Ql (U) 1.0 E.U./dL <=1.0 Aric ance [facility] Albumin [Mass/Vol] 3.4 g/dL 3.4-5.0 [facility] Albumin/Globulin [Mass ratio] 1.0 {ratio} Low 1.1-1.8 [facility] ALP [Catalytic activity/Vol] 56 U/L 45-117 [facility] ALT [Catalytic activity/Vol] 42 U/L 12-78 [facility] Anion gap [Moles/Vol] 8.6 mmol/L Low 11-23 [facility] AST [Catalytic activity/Vol] 68 U/L High 15-37 [facility] Basophils (Bld) [#/Vol] 0.0 10*3/uL 0-0.1 [facility] Basophils/100 WBC (Bld) 0.80 % 0-2 [facility] Bilirubin [Mass/Vol] 0.4 mg/dL 0.2-1.0 [facility] Calcium [Mass/Vol] 8.7 mg/dL 8.5-10.1 [facility] Chloride [Moles/Vol] 107 mmol/L 98-107 [facility] CO2 [Moles/Vol] 27.0 mmol/L 21-32 [facility] Creatinine [Mass/Vol] 1.20 mg/dL 0.7-1.3 [facility] Eosinophils (Bld) [#/Vol] 0.1 10*3/uL 0.0-1.80 [facility] Eosinophils/100 WBC (Bld) 1.0 % 0-8 [facility] Erythrocyte distribution width (RBC) [Ratio] 13.1 % 11.0-15.5 [facility] Estimated GFR () [facility] Comment on above: THE NORMAL LEVEL OF GFR VARIES ACCORDING TO AGE, SEX, AND BODY SIZE. A GFR LEVEL OF LESS THAN 60 ML/MIN REPRESENTS LOSS OF THE ADULT LEVEL OF NORMAL KIDNEY FUNCTION. GFR/1.73 sq M.predicted among non-blacks MDRD (S/P/Bld) [Vol rate/Area] [facility] Globulin (S) [Mass/Vol] 3.4 g/dL 2.5-4.6 [facility] Glucose [Mass/Vol] 120 mg/dL High 70-100 [facility] Granulocytes (Bld) [#/Vol] 3.9 10*3/uL 2.2-9.1 [facility] Granulocytes/100 WBC (Bld) 71.5 % 42-80 [facility] Hematocrit (Bld) [Volume fraction] 37.5 % Low 41.0-53.0 [facility] Hemoglobin (Bld) [Mass/Vol] 13.1 g/dL Low 14.0-18.0 [facility] Lipase [Catalytic activity/Vol] 207 U/L 73-393 [facility] Lymphocytes (Bld) [#/Vol] 1.1 10*3/uL 1.0-4.0 [facility] Lymphocytes/100 WBC (Bld) 20.7 % 16-48 [facility] MCH (RBC) [Entitic mass] 30.9 pg 26.0-32.0 [facility] MCHC (RBC) [Mass/Vol] 35.1 g/dL 31.0-36.0 [facility] MCV (RBC) [Entitic vol] 88.0 fL 80-97 [facility] Monocyte distribution width Auto (Bld) [Entitic vol] 15.58 0-20 [facility] Comment on above: For ED adult patient s suspected of sepsis, MDW<=20.0 does not rule out sepsis or risk of sepsis Monocytes (Bld) [#/Vol] 0.3 10*3/uL 0.1-1.7 [facility] Monocytes/100 WBC (Bld) 6.0 % 3-9 [facility] Platelet mean volume (Bld) [Entitic vol] 8.0 fL 6.4-10.5 [facility] Platelets (Bld) [#/Vol] 221 10*3/uL 140-450 [facility] Potassium [Moles/Vol] 3.8 mmol/L 3.5-5.1 [facility] Protein [Mass/Vol] 6.8 g/dL 6.0-8.3 [facility] RBC (Bld) [#/Vol] 4.25 10*6/uL Low 4.40-6.30 [facility] Sodium [Moles/Vol] 139 mmol/L 136-145 [facility] Urea nitrogen [Mass/Vol] 16.0 mg/dL 7-18 [facility] WBC (Bld) [#/Vol] 5.4 10*3/uL 4.0-11.0 [facility] URINALYSISon 07-22-2022 Appearance (U) Clear Normal CLEAR [facility] Comment on above: Order Comment: What Is Urine Source? [place] Performed By: #### U A #### [address] [address] Color (U) Lt. Yellow Normal [facility] Comment on above: Order Comment: What Is Urine Source? [place] Performed By: #### U A #### [address] [address] Hemoglobin Ql (U) Negative Normal NEGATIVE [facility] Comment on above: Order Comment: What Is Urine Source? [place] Performed By: #### U A #### [address] [address] pH (U) 8.0 [pH] Normal 5.0-9.0 [facility] Comment on above: Order Comment: What Is Urine Source? [place] Performed By: #### U A #### [address] [address] URINE BILIRUBIN - DIPSTICK Negative Normal NEGATIVE [facility] Comment on above: Order Comment: What Is Urine Source? [place] Performed By: #### U A #### [facility] [address] [place] [address] URINE GLUCOSE -DIPSTICK Negative Normal NEGATIVE [facility] Comment on above: Order Comment: What Is Urine Source? [place] Performed By: #### U A #### [facility] [address] [place] [address] URINE KETONE Negative Normal NEGATIVE [facility] Comment on above: Order Comment: What Is Urine Source? [place] Performed By: #### U A #### [facility] [address] [place] [address] URINE LEUK ESTERASE Negative Normal NEGATIVE [facility] Comment on above: Order Comment: What Is Urine Source? [place] Performed By: #### U A #### [address] [address] URINE NITRITE - DIPSTICK Negative Normal NEGATIVE [facility] Comment on above: Order Comment: What Is Urine Source? [place] Performed By: #### U A #### [address] [address] URINE PROTEIN - DIPSTICK Negative Normal NEGATIVE [facility] Comment on above: Order Comment: What Is Urine Source? [place] Performed By: #### U A #### [address] [address] URINE SPEC GRAVITY, DIPSTICK 1.010 Normal 1.003-1.035 [facility] Comment on above: Order Comment: What Is Urine Source? [place] Performed By: #### U A #### [address] [address] URINE UROBILINOGEN - DIPSTICK 1.0 E.U./dL Normal <=1.0 [facility] Comment on above: Order Comment: What Is Urine Source? [place] Performed By: #### U A #### [address] [address] Emergency Department Summary on 07-09-2022 Emergency Department Summary [facility] Medical Records Department [address] [place] [address] Emergency Department Summary 07/09/22 MR#: [id number] Acct: [id number] Name: SAMIR AVILA Rep #: [id number] : 1975 46 From: Volodymyr Paz DO PCP: Dr. Manuel Truong, DO Status:REG ER Location: ED HPI History of Present Illness Chief Complaint: Lower Extremity Injury Narrative Narrative: Patient is a 46-year-old male with past medical history of hypertension and schizophrenia. He states he has had pain to his left heel that is worse with weightbearing/ambulat ion over the last few days. He denies any direct trauma and he denies any excessive walking or activity prior to the pain beginning. He states he is concerned that he may have an infection or a broken foot because of the increased pain and with this comes in for evaluation. PFSH PFS Home Medications lisinopril 10 mg tablet (Prinivil) 10 mg PO DAILY 06/12/16 [History Last Taken Unknown] risperidone 1 mg tablet 1 mg PO DAILY 06/12/16 [History Last Taken Unknown] clindamycin HCl 150 mg capsule 300 mg PO 4X/DAY ##80 09/02/16 [Rx Last Taken Unknown] Allergy/AdvReac Type Severity Reaction Status Date / Time methylphenidate HCl AdvReac Nausea Verified 07/09/22 01:17 [From Ritalin] Social History Smoking Status: Current some day smoker tobacco type: cigarettes ROS ROS ED Constitutional Constitutional ED: Denies chills or fever(s) ENT ENT ED: Denies sore throat Cardiovascular Cardiovascular: Denies chest pain Respiratory/Chest Respiratory/Chest: Denies cough or dyspnea Gastrointestinal Gastrointestinal: Denies abdominal pain, diarrhea, nausea or vomiting Genitourinary Genitourinary ED: Denies dysuria Musculoskeletal Musculoskeletal: Reports other Details: Positive left heel pain Integumentary Denies Abrasions or rash Neurologic Neurologic: Denies headache(s) or paresthesias Hematologic/Lymphatic Hematologic/Lymphatic : Denies easy bleeding or easy bruising EXAM Physical Exam Const Vital Signs: 07/09/22 01:15 Temperature 98.5 F Temperature Source Temporal Pulse Rate 85 Respiratory Rate 14 Blood Pressure 156/111 H Blood Pressure Mean 126 Pulse Ox 100 Oxygen Delivery Method Room Air Positive well nourished and well developed General Appearance ED: well developed Eyes PERRL and EOMs intact bilaterally Neck supple Resp normal respiratory effort and clear to auscultation bilaterally Cardio regular rate and regular rhythm Extremity Extremity Narrative: Left lower extremity is neurovascularly intact. There is no obvious bony deformity or joint effusion present. Achilles tendon is intact and ankle ligaments are stable. There is no overlying erythema or warmth to suggest cellulitis and no induration or fluctuance to suggest abscess formation. There is pain on palpation along the calcaneus as well as the lateral aspects of the heel bilaterally Remainder the exam is normal Neuro oriented x3 and CN's II-XII intact bilaterally Sensorium / Orientation: alert Psych Psych Narrative: Patient has a flat affect Skin no rashes or lesions noted Skin Narrative: No overlying soft tissue changes to suggest trauma or infection MDM MDM MDM Narrative Medical decision making narrative: Patient presented to the ER hypertensive but does have a past medical history of this. He reported pain in his left heel that occurred without any type of trauma or excessive activity. Pain in the heel region includes differential of heel spur plantar fasciitis cellulitis abscess or Sever's syndrome or possible Achilles tendon injury. By exam he can plantarflex without any pain going against Achilles tendon injury. He has no erythema or warmth no lymphangitic streaking no induration or fluctuance and therefore there is no obvious signs of an infectious process. X-ray was obtained which revealed no acute fracture or heel spur indicating pain is most likely related to irritation/inflammati on along the tendons and bone consistent with Sever's syndrome. The patient was instructed that treatment for this is rest compression ice and anti-inflammatories. He will be given an Fernando wrap and prescribed prescription grade ibuprofen but otherwise there is no need for further work-up any safe for discharge History Record Review Discussion w/independent historian: Patient Radiography Diagnostic Testing: Left foot x-ray as interpreted by the emergency medicine physician reveals no acute fracture dislocation joint effusion or foreign body Discharge Plan Triage Chief Complaint: Lower Extremity Injury ED Provider: Volodymyr Paz Dx/Rx/DC Orders Clinical Impression: Sever's disease of left calcaneus, Schizophrenia Instructions: Arthritis: Exercise Prescriptions: No Action lisinop (more content not included)... Normal [facility] Foot min 3 Viewson 3 Foot min 3 Views [facility] Imaging Services [address] [place] [address] Foot min 3 Views MR#: [id number] Acct: [id number] Name: SAMIR AVILA Rep #: [id number] : 1975 M 46 From: Steven ospina MD PCP: Dr. Manuel Truong, DO Status: REG ER Study: Foot min 3 Views Date of Exam: 07/09/22 Exam# [id number] Ordering Dr: Volodymyr Paz DO EXAM: XR LEFT FOOT COMPLETE, 3 OR MORE VIEWS CLINICAL INDICATION: pain pain TECHNIQUE: Frontal, lateral and oblique views of the left foot. This report was created using [employer] report generation technology. COMPARISON: None. FINDINGS: BONES/JOINTS: There is mild degenerative arthrosis of the first metatarsophalangeal joint. No acute fracture. No subluxation. Normal alignment. No sclerotic or destructive changes observed. SOFT TISSUES: Unremarkable. No soft tissue swelling or gas. No radiopaque foreign body. RAD/Foot min 3 Views IMPRESSION: No demonstrated fracture, dislocation, or destructive osseous lesion. Electronically Signed: Steven Mendez MD at 2:40 EDT Reading Location ID and State: [facility] / [place] , Service support , CC: Dr. Manuel Truong DO; Volodymyr Paz DO Commissioner Of Officials: Signed [facility] ED NOTEon 06-07-2022 ED NOTE HNO ID: [id number] Author: Reena Avila RN Service: ? Author Type: Registered Nurse Type: ED Notes Filed: 06/07/2022 6:19 AM Note Text: Discussed discharge instructions with pt including new prescriptions and importance of follow up with pcp. Education provided including s/s to return to ER. Pt verbalized understanding. Pt resp even and unlabored with no s/s of distress noted. Pt able to speak in complete sentences without difficulty. All questions answered and pt denies any needs at this time. Pt ambulatory with steady gait on departure. [facility] ED NOTE HNO ID: [id number] Author: Betty Yeung RN Service: ? Author Type: Registered Nurse Type: ED Notes Filed: 06/07/2022 5:10 AM Note Text: Pt brought in by EMS for foot pain. Pt reports that he walked to [place] from [place] to see his mother who lives in [place]. Pt reports that his feet and legs hurt from walking. Pt is AOx3, resps easy and unlabored, skin is warm, dry and intact. [facility] ED PROV NOTEon 06-07-2022 ED PROV NOTE HNO ID: [id number] Author: Hiram Laura MD Service: Emergency Medicine Author Type: Physician Type: ED Provider Notes Filed: 06/07/2022 5:38 AM Note Text: ED Provider Note Patient Name: Samir Avila : 1975 SERVICE DATE: 06/07/22 History Patient presents with: Pain (foot) 46-year-old male with history of hypertension, ADHD, paranoid schizophrenia presenting to emergency department for evaluation of foot pain. States he is not walking for couple hours try to get to his mother's house, lives in [place] but was visiting a friend in [place], trying to get to his mother's house but does not have money to pay for a bus. Was not sure where to go to a fpc overnight so he just walked throughout the night. No chest pain or shortness of breath, denies suicidal homicidal ideation. Having bilateral foot pain. PAST MEDICAL HISTORY Diagnosis Date Attention deficit disorder with hyperactivity(314.01) as a child Essential hypertension, benign 2004 Gastric ulcer, unspecified as acute or chronic, without mention of hemorrhage, perforation, or obstruction 03/2011 Non morbid obesity 04/13/2016 Paranoid schizophrenia (HCC) PAST SURGICAL HISTORY Procedure Laterality Date COLONOSCOPY FLX DX W/COLLJ SPEC WHEN PFRMD 03/24/11 poor prep, unable to visualize beyond hepatic flexure COLONOSCOPY FLX DX W/COLLJ SPEC WHEN PFRMD 03/24/11 COLONOSCOPY FLX DX W/COLLJ SPEC WHEN PFRMD 04/18/2016 normal EGD TRANSORAL BIOPSY SINGLE/MULTIPLE 03/24/11 gastritis, gastric ulcer, EGD TRANSORAL BIOPSY SINGLE/MULTIPLE 03/24/11 EGD TRANSORAL BIOPSY SINGLE/MULTIPLE 04/18/2016 gastritis IANDD ISCHIORCT/INTRAMURAL ABSC W/WO SETON 07/15 posterior anal fistulectomy FAMILY HISTORY Problem Relation Age of Onset Heart Father 50's None Mother None Sister None Sister None Brother Social History Tobacco Use Smoking status: Former Packs/day: 0.50 Years: 13.00 Pack years: 6.50 Types: Cigarettes Quit date: 09/14/2002 Years since quittin.7 Smokeless tobacco: Current Types: Chew Tobacco comments: 1 can a day Substance and Sexual Activity Alcohol use: No Comment: rarely Drug use: No Sexual activity: Not on file ALLERGIES Allergen Reactions Aspirin Vomiting Ritalin [Methylphen* GI Upset Review of Systems Constitutional: Negative for diaphoresis and fever. HENT: Negative for congestion, facial swelling and sore throat. Eyes: Negative for pain and visual disturbance. Respiratory: Negative for cough and shortness of breath. Cardiovascular: Negative for chest pain and leg swelling. Gastrointestinal: Negative for nausea and vomiting. Musculoskeletal: Positive for arthralgias and myalgias. Negative for back pain and joint swelling. Skin: Negative for pallor and rash. Neurological: Negative for dizziness and headaches. Psychiatric/Behaviora l: Negative for behavioral problems and confusion. Physical Exam Vitals BP Pulse Temp Temp src Resp SpO2 Weight Height 06/07/22 0507 06/07/22 0507 -- -- 06/07/22 0507 06/07/22 0507 -- 06/07/22 0505 157/98 80 16 97 % 1.905 m (6' 3") Physical Exam Constitutional: General: He is not in acute distress. HENT: Head: Normocephalic and atraumatic. Nose: No congestion. Mouth/Throat: Mouth: Mucous membranes are moist. Eyes: General: No scleral icterus. Conjunctiva/sclera: Conjunctivae normal. Cardiovascular: Rate and Rhythm: Normal rate. Heart sounds: No murmur heard. Pulmonary: Effort: No respiratory distress. Breath sounds: No wheezing. Abdominal: General: There is no distension. Tenderness: There is no abdominal tenderness. There is no guarding. Musculoskeletal: General: No deformity. Normal range of motion. Feet: Feet: Comments: Small blister on right toe, no other wounds or skin breakdown, no pain out of proportion to exam Skin: General: Skin is warm. Capillary Refill: Capillary refill takes less than 2 seconds. Findings: No rash. Neurological: General: No focal deficit present. Mental Status: He is alert. Cranial Nerves: No cranial nerve deficit. Psychiatric: Mood and Affect: Mood normal. Behavior: Behavior normal. Diagnostic Testing ED Labs Ordered and Reviewed - No data to display Procedures ED Course / Clinical Impression Clinical Impressions as of 06/07/22 0538 Pain in both feet Housing instability MDM / Disposition / Plan On initial evaluation patient nonacute distress, has housing instability but given resources for shelters in the area, given a bus pass to help him reach his destination, denies suicidal homicidal ideation, no indication for acute involuntary psychiatric admission at this time. Patient declined blood work, not clinically having compartment syndrome, no pain out of proportion to exam or numbness in lower extremities. Patient discharged to follow-up with primary care provider strict return precautions given. Dispositi (more content not included)... Normal [facility] Vital Signs Date Time Vital Sign Value Performing Clinician Facility 03-24-2023 10:45-0500 Body temperature 97.2 [degF] Luli Elizabeth [employer] MAINTENANCE.LAY [employer]SEMBLER Work Phone: [facility] 03-24-2023 10:45-0500 Body weight 99.07 kg Luli Elizabeth SUPERVISOR CELL MAINTENANCE.[employer] ASSEMBLER Work Phone: [facility] 03-24-2023 10:45-0500 Diastolic blood pressure 96 mm[Hg] Luli Elizabeth SUPERVISOR CELL MAINTENANCE.[employer] ASSEMBLER Work Phone: [facility] 03-24-2023 10:45-0500 Heart rate 101 /min Luli Elizabeth SUPERVISOR CELL MAINTENANCE.[employer] ASSEMBLER Work Phone: [facility] 03-24-2023 10:45-0500 Respiratory rate 16 /min Luli Elizabeth SUPERVISOR CELL MAINTENANCE.[employer] ASSEMBLER Work Phone: [facility] 03-24-2023 10:45-0500 SaO2% (BldA) [Mass fraction] 99 % Luli Elizabeth SUPERVISOR CELL MAINTENANCE.[employer] ASSEMBLER Work Phone: [facility] 03-24-2023 10:45-0500 Systolic blood pressure 138 mm[Hg] Luli Elizabeth SUPERVISOR CELL MAINTENANCE.[employer] ASSEMBLER Work Phone: [facility] 02-15-2023 22:49-0400 Body height 195.[address] [facility] 02-15-2023 22:49-0400 Body mass index (BMI) [Ratio] 25.7 kg/m2 [facility] 02-15-2023 22:49-0400 Body temperature 97.9 [degF] [facility] 02-15-2023 22:49-0400 Body weight 98.[address] [facility] 02-15-2023 22:49-0400 Diastolic blood pressure 77 mm[Hg] [facility] 02-15-2023 22:49-0400 Heart rate 86 /min [facility] 02-15-2023 22:49-0400 Respiratory rate 18 /min [facility] 02-15-2023 22:49-0400 SaO2% (BldA) [Mass fraction] 98 % [facility] 02-15-2023 22:49-0400 Systolic blood pressure 129 mm[Hg] [facility] 08-22-2022 02:16-0400 Body height 190.[address] [facility] 08-22-2022 02:16-0400 Body mass index (BMI) [Ratio] 30 kg/m2 [facility] 08-22-2022 02:16-0400 Body temperature 99 [degF] [facility] 08-22-2022 02:16-0400 Body weight 109.[address] [facility] 08-22-2022 02:16-0400 Diastolic blood pressure 92 mm[Hg] [facility] 08-22-2022 02:16-0400 Heart rate 85 /min [facility] 08-22-2022 02:16-0400 Respiratory rate 16 /min [facility] 08-22-2022 02:16-0400 SaO2% (BldA) [Mass fraction] 98 % [facility] 08-22-2022 02:16-0400 Systolic blood pressure 158 mm[Hg] [facility] 08-18-2022 02:06-0400 Body height 190.[address] [facility] 08-18-2022 02:06-0400 Body mass index (BMI) [Ratio] 30.6 kg/m2 [facility] 08-18-2022 02:06-0400 Body temperature 97.2 [degF] [facility] 08-18-2022 02:06-0400 Body weight 111.[address] [facility] 08-18-2022 02:06-0400 Diastolic blood pressure 98 mm[Hg] [facility] 08-18-2022 02:06-0400 Heart rate 83 /min [facility] 08-18-2022 02:06-0400 Respiratory rate 18 /min [facility] 08-18-2022 02:06-0400 SaO2% (BldA) [Mass fraction] 98 % [facility] 08-18-2022 02:06-0400 Systolic blood pressure 142 mm[Hg] [facility] 08-05-2022 00:24-0400 Diastolic blood pressure 87 mm[Hg] [facility] 08-05-2022 00:24-0400 Heart rate 99 /min [facility] 08-05-2022 00:24-0400 Respiratory rate 16 /min [facility] 08-05-2022 00:24-0400 SaO2% (BldA) [Mass fraction] 99 % [facility] 08-05-2022 00:24-0400 Systolic blood pressure 152 mm[Hg] [facility] 08-04-2022 23:41-0400 Body height 190.[address] [facility] 08-04-2022 23:41-0400 Body mass index (BMI) [Ratio] 31 kg/m2 [facility] 08-04-2022 23:41-0400 Body temperature 98 [degF] [facility] 08-04-2022 23:41-0400 Body weight 112.[address] [facility] 08-03-2022 02:15-0400 Body height 182.[address] [facility] 08-03-2022 02:15-0400 Body mass index (BMI) [Ratio] 33.6 kg/m2 [facility] 08-03-2022 02:15-0400 Body temperature 98.6 [degF] [facility] 08-03-2022 02:15-0400 Body weight 112.[address] [facility] 08-03-2022 02:15-0400 Diastolic blood pressure 99 mm[Hg] [facility] 08-03-2022 02:15-0400 Heart rate 77 /min [facility] 08-03-2022 02:15-0400 Respiratory rate 16 /min [facility] 08-03-2022 02:15-0400 SaO2% (BldA) [Mass fraction] 99 % [facility] 08-03-2022 02:15-0400 Systolic blood pressure 167 mm[Hg] [facility] 07-31-2022 03:26-0400 Heart rate 81 /min [facility] 07-31-2022 03:26-0400 Respiratory rate 16 /min [facility] 07-31-2022 01:41-0400 Body height 190.[address] [facility] 07-31-2022 01:41-0400 Body mass index (BMI) [Ratio] 31.1 kg/m2 [facility] 07-31-2022 01:41-0400 Body temperature 98 [degF] [facility] 07-31-2022 01:41-0400 Body weight 112.[address] [facility] 07-31-2022 01:41-0400 Diastolic blood pressure 90 mm[Hg] [facility] 07-31-2022 01:41-0400 SaO2% (BldA) [Mass fraction] 98 % [facility] 07-31-2022 01:41-0400 Systolic blood pressure 156 mm[Hg] [facility] 07-24-2022 00:52-0400 Body temperature 97.88 [degF] MEDHATLodgeo DO [facility] 07-24-2022 00:52-0400 Diastolic Blood Pressure Non-Invasive 86 1 [employer]HAT [employer]ICH[employer]uro[employer] DO [facility] 07-24-2022 00:52-0400 Heart rate 70 /min MEDHAT REDefywire DO [facility] 07-24-2022 00:52-0400 Respiratory rate 16 /min MEDHAT REDefywire DO [facility] 07-24-2022 00:52-0400 Systolic Blood Pressure Non-Invasive 145 1 [employer]Ne[employer] DO [facility] 07-23-2022 05:24-0400 Body temperature 96.6 [degF] [employer] [facility] 07-23-2022 05:24-0400 Diastolic blood pressure 110 mm[Hg] Head Of Store Operations [facility] 07-23-2022 05:24-0400 Heart rate 78 /min [employer] Of Store [employer] [facility] 07-23-2022 05:24-0400 Respiratory rate 18 /min [employer] [facility] 07-23-2022 05:24-0400 SaO2% (BldA) [Mass fraction] 100 % [employer] [facility] 07-23-2022 05:24-0400 Systolic blood pressure 162 mm[Hg] [employer] [facility] 07-22-2022 14:34-0400 Body temperature 97.3 [degF] Lucinda Zeisler [facility] 07-22-2022 14:34-0400 Body weight 115.66 kg Lucinda Zeisler [facility] 07-22-2022 14:34-0400 Diastolic blood pressure 89 mm[Hg] Lucinda Zeisler [facility] 07-22-2022 14:34-0400 Heart rate 95 /min Lucinda Zeisler [facility] 07-22-2022 14:34-0400 Respiratory rate 16 /min Lucinda Zeisler [facility] 07-22-2022 14:34-0400 SaO2% (BldA) [Mass fraction] 100 % Lucinda Zeisler [facility] 07-22-2022 14:34-0400 Systolic blood pressure 133 mm[Hg] Lucinda Bateschasity [facility] 07-09-2022 01:15-0400 Body mass index (BMI) [Ratio] 31.4 kg/m2 [facility] 07-09-2022 01:15-0400 Body temperature 98.5 [degF] [facility] 07-09-2022 01:15-04[address] [facility] 07-09-2022 01:15-0400 Diastolic blood pressure 111 mm[Hg] [facility] 07-09-2022 01:15-0400 Heart rate 85 /min [facility] 07-09-2022 01:15-0400 Respiratory rate 14 /min [facility] 07-09-2022 01:15-0400 SaO2% (BldA) [Mass fraction] 100 % [facility] 07-09-2022 01:15-0400 Systolic blood pressure 156 mm[Hg] [facility] Body weight Head Of Store Operations [facility] Encounters Encounter Date Encounter Type Care Provider Facility Start: 03-24-2023 End: 03-24-2023 ambulatory Facility:[facility] Start: 03-24-2023 End: 03-24-2023 Patient encounter procedure Luli Elizabeth APRN.CNP Work Phone: [facility] Care Comment on above: Dizziness (Primary D x) Start: 02-15-2023 End: 02-16-2023 Emergency department patient visit [facility] Work Phone: Start: 08-22-2022 End: 08-22-2022 Emergency department patient visit Manuel Truong Facility:[facility] Start: 08-22-2022 End: 08-22-2022 Emergency department patient visit [facility] Start: 08-18-2022 End: 08-18-2022 Emergency department patient visit Manuel Truong Facility:[facility] Start: 08-18-2022 End: 08-18-2022 Emergency department patient visit [facility] Start: 08-05-2022 End: 08-05-2022 Emergency department patient visit Manuel Truong Facility:[facility] Start: 08-04-2022 End: 08-05-2022 Emergency department patient visit [facility] Start: 08-03-2022 End: 08-03-2022 Emergency department patient visit Manuel Truong Facility:[facility] Start: 08-03-2022 End: 08-03-2022 Emergency department patient visit [facility] Start: 07-31-2022 End: 07-31-2022 Emergency department patient visit Manuel Truong Facility:[facility] Start: 07-31-2022 End: 07-31-2022 Emergency department patient visit [facility] Start: 07-24-2022 End: 07-24-2022 Emergency department patient visit MANUEL TRUONG Facility: Start: 07-24-2022 End: 07-24-2022 [facility] Start: 07-23-2022 End: 07-23-2022 Emergency department patient visit Head Of Store Operations [facility] Start: 07-22-2022 End: 07-22-2022 Emergency department patient visit Lucinda Kenney [facility] Start: 07-09-2022 End: 07-09-2022 Emergency department patient visit Manuel Truong Facility:[facility] Start: 07-09-2022 End: 07-09-2022 Emergency department patient visit [facility] Start: 06-07-2022 End: 06-07-2022 Emergency department patient visit HIRAM LAURA Facility:[facility] Procedures Date Procedure Procedure Detail Performing Clinician Start: 02-15-2023 SARS-CoV-2 & FLU Ant igen (Rapid) Start: 08-18-2022 X-ray of both feet Start: 07-22-2022 Computed tomography of abdomen and pelvis with contrast Lucinda Kenney Start: 07-09-2022 X-ray of both feet Start: 10-31-2017 Lipid 1996 panel - S tracy or Plasma Luli Elizabeth APRN.CNP Work Phone: Start: 04-18-2016 Colonoscopy Luli knight APRN.CNP Work Phone: Plan of Treatment Date Care Activity Detail Author Start: 02-16-2023 [facility] Start: 02-15-2023 [facility] Start: 12-15-2022 Influenza vaccination Influenza Vaccine (#1) [facility] Start: 10-31-2022 Lipid 1996 panel - Serum or Plasma Lipid Screening [facility] Start: 04-16-2022 Depression Assessment Depression Assessment [facility] Start: 10-31-2020 Diabetes Screening Diabetes Screening [facility] Start: 10-02-2020 Cologuard (FIT-DNA) Cologuard (FIT-DNA) [facility] Start: 10-02-2020 Colonoscopy Colonoscopy [facility] Start: 10-02-2020 Colorectal Cancer Screening Colorectal Cancer Screening [facility] Start: 10-02-[address] Colonography [facility] Start: 10-02-2020 Fecal Occult Blood Fecal Occult Blood [facility] Start: 10-02-2020 Sigmoidoscopy Sigmoidoscopy [facility] Start: 10-02-1994 Urine microalbumin profile DTaP,Tdap,Td Vaccine (1 - Tdap) [facility] Start: 10-02-1993 Annual PCP Team Chronic Disease Visit Annual PCP Team Chronic Disease Visit [facility] Start: 10-02-1993 BP Controlled (<130/80) BP Controlled (<130/80) [facility] Start: 10-02-1993 Hepatitis C Screening Hepatitis C Screening [facility] Start: 04-03-1976 Covid-19 Vaccine (#1) Covid-19 Vaccine (#1) [facility] Start: 1975 Hepatitis B Vaccine (1 of 3 - 3-dose series) Hepatitis B Vaccine (1 of 3 - 3-dose series) [facility] Patient Education [facility] Patient referral [facility] Work Phone: Payers Date Payer Category Payer Self-pay 2018 Medicaid [employer] MEDICAID [id number] 2018-Present [phone] [address] [place] [address] Medicaid [id number] 2018 Medicare [employer] [id number] 2018-Present [phone] [address] [place] [address] Medicare [id number] 2015 Medicare [id number] 2015 Unknown [id number] 1975 Unknown [id number] Unknown [id number] Unknown [id number] Unknown [id number] Unknown [id number] Unknown [id number] Unknown [id number] Unknown [id number] Unknown [id number] Social History Date Type Detail Facility Unknown if ever smoked [facility] Tobacco smoking status Never smo ked tobacco (finding) [facility] Sex Assigned At Sex [facility] Start: 07-31-2022 End: 02-15-2023 Tobacco smoking status NHIS Unknown if ever smoked [facility] Start: 1975 Sex Assigned At Male [facility] Start: 03-24-2023 Tobacco smoking stat us NHIS Ex-smoker [facility] End: 09-14-2002 History of tobacco use Current smoker [facility] End: 09-14-2002 History of tobacco use Cigarette Smoker [facility] Start: 03-24-2023 Cigarettes smoked current (pack per day) - Reported 0.5 [facility] Start: 03-24-2023 Tobacco use and exposure User of smokeless tobacco [facility] History of tobacco use Chews Tobacco [facility] Start: 03-24-2023 Alcohol intake 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 alcohol (finding) [facility] Start: 03-24-2023 Tobacco use panel [facility] National Score (1-10 0), lower number is lower risk 65 [facility] Start: 03-24-2023 Tobacco Comment 1 can a day [facility] Start: 1975 Sex Assigned At Not on file [facility] Functional Status Date Assessment Result Facility 07-24-2022 Functional Status Activity Ethan paniagua Independent [facility] 07-24-2022 Functional Status Standard Safet y ID band on, Allergy Band on, Call device within reach, Bed in low position, Wheels locked, Upper/Half-Length side-rails up, Phone within reach, Bedside Cart Locked [facility] Mental Status Date Assessment Result Facility 02-15-2023 Cognitive function Level Of Cons ciousness Awake;Alert;Appropriate;Follow s Commands [facility] Work Phone: 07-24-2022 Mental Status Orientation Oriented x 4 [facility] 07-24-2022 Mental Status [facility] Clinical Notes 07-24-2022 to 03-24-2023 Luli Elizabeth APRN.[employer] - 03/24/2023 10:59 AM EST Note Date & Type Note Facility 03-24-2023 Note HNO ID: [id number] Author: Luli Elizabeth APRN.CNP Service: ? Author Type: Nurse Practitioner Type: Progress Notes Filed: 03/24/2023 11:05 AM Note Text: Nontoxic-appearing male presents urgent care chief plaint dizziness. Duration of symptoms today. Associated symptoms nausea and dizzy. Patient states does not feel good. Does not know what is wrong with him. No syncopal episodes no chest pain or shortness of breath. Most prominent symptom today is dizziness. Denies history of dizziness like this in the past. With presenting symptoms I recommend patient be seen ED for further evaluation care. Will be seen at [facility]. Luli Elizabeth APRN.CNP [facility] 03-24-2023 History of Present illness Narrative Nontoxic-appearing male presents urgent care chief plaint dizziness. Duration of symptoms today. Associated symptoms nausea and dizzy. Patient states does not feel good. Does not know what is wrong with him. No syncopal episodes no chest pain or shortness of breath. Most prominent symptom today is dizziness. Denies history of dizziness like this in the past. With presenting symptoms I recommend patient be seen ED for further evaluation care. Will be seen at [facility]. Luli Elizabeth APRN.KWABENA documented in this encounter [facility] 02-15-2023 Discharge summary Note Date/Time February 15, 2023 11:18pm [facility] Medical Records Department [address] [place] [id number] Emergency Department Summary 02/15/23 MR#: [id number] Acct: [id number] Name: SAMIR AVILA Rep #:[id number] : 1975 47 From: Poncho Rizzo MD PCP: Dr. Manuel Truong, Status:RE G ER Location: ED HPI HPI - URI History of Present Illness Chief Complaint: Cold Sx Informant: patient Narrative Narrative: Patient states he recently was living at the [facility] [employer] and had multiple sick contacts there, and for the last 2 days has had cold symptoms. Denies dyspnea or known fevers. States "you can take as long as you want to run tests,I am homeless." ROS ROS ED Constitutional Constitutional ED: Reports malaise; Denies chills or fever(s) ENT ENT ED: Reports rhinorrhea and sore throat; Denies ear pain or nasal congestion Cardiovascular Cardiovascular: Denies chest pain or palpitations Respiratory/Chest Respiratory/Chest: Reports cough; Denies dyspnea Gastrointestinal Gastrointestinal: Reports diarrhea and nausea; Denies abdominal pain or vomiting Genitourinary Genitourinary ED: Denies dysuria or hematuria Musculoskeletal Musculoskeletal: Denies myalgias or neck pain Integumentary Denies abscess or rash Neurologic Neurologic: Reports headache(s); Denies paresthesias or weakness Psychiatric Psychiatric: Denies depression or suicidal thoughts Endocrine Endocrinology: Denies polydipsia or polyuria [facility] Medical History Schizophrenia Home Medications naproxen 500 mg tablet (Naprosyn) 500 mg PO BID PRN pain #20 tabs 08/31/22 [Rx Last Taken Unknown] Allergy/AdvReac Type Severity Reaction Status Date / Time methylphenidate HCl AdvReac Nausea Verified 02/15/23 22:51 [From Ritalin] Social History (Updated 02/15/23 @ 23:[address] Poncho Rizzo MD) Smoking Status: Current some day smoker tobacco type: cigarettes EXAM Physical Exam Const Vital Signs: 02/15/23 22:49 02/15/23 23:17 Temperature 97.9 F Temperature Source Temporal Pulse Rate 86 Respiratory Rate 18 Respiratory Effort Short of Breath Respiratory Pattern Normal Blood Pressure 129/77 H Blood Pressure Mean 94 Pulse Ox 98 Oxygen Delivery Method Room Air Positive well nourished and well developed General Appearance ED: well developed and NAD HEENT Reports moist mucous membranes normocephalic and atraumatic Throat: Negative for posterior oropharynx abnormal Eyes PERRL and EOMs intact bilaterally Neck no lymphadenopathy, supple and no meningeal signs Resp normal respiratory effort and clear to auscultation bilaterally Cardio no murmurs Rate: regular rate Rhythm: regular rhythm Neuro oriented x3, CN's II-XII intact bilaterally and no sensory deficits noted Sensorium / Orientation: alert Motor Exam: strength 5/5 throughout Skin Lesions: no lesions Rashes: no rashes MDM MDM MDM Narrative Medical decision making narrative: Patient with a benign exam and normal vital signs including pulse oximetry 98% on room air, no dyspnea and lungs are clear. Consistent with viral syndrome, COVID and influenza swabs were sent, and he was given an injection of Toradol for his headache/symptoms. COVID is positive. Does not meet any criteria for antivirals, given appropriate discharge instructions for supportive care. Discharge Plan Triage Chief Complaint: Cold Sx ED Provider: Poncho Rizzo Dx/Rx/DC Orders Clinical Impression: COVID-19 Instructions: Coronavirus Disease 2019 (COVID-19): Caring for Yourself or Others Prescriptions: No Action naproxen [Naprosyn] 500 mg tablet 500 mg PO BID PRN (Reason: pain) Qty: 20 0RF Primary Care Provider: Manuel Truong Referrals: Manuel Truong DO [Primary Care Provider] - As Needed Activity Restrictions/Additional Instructions: Try to get a home portable pulse oximeter and closely watch your oxygen levels periodically. If you stay below 90% for more than a minute or so, and/or you are feeling like your breathing is getting worse, return to the emergency department for further evaluation. Currently, CDC recommendations state that you should stay home through day 5 of symptoms, then as long as symptoms are improving, if you need to go to work or somewhere else you may for days 6-10 as long as you are wearing a mask the entire time. If you are feeling better after day 10 you may resume life is normal. Disposition Disposition: Home, Self Care What to do if you have Problems For any increased pain, shortness of breath, bleeding, nausea or vomiting, chestpain, or any unexpected problems, contact your Primary Care Provider. Call [facility] ([phone]) or report to the closest Emergency Room. Call 911 if necessary. 02/16/23 0051 <Electronically signed by Poncho Rizzo MD> Cosigner Signature (if applicable): CC: Dr. Manuel Truong DO ~ Signed [facility] Work Phone: [phone] 271-468604-10-2023 Hospital Discharge instructions Patient Education 07/24/2022 00:49:11 Pain, Acute, Uncertain Cause Acute Pain, Uncertain Cause Pain can be caused by many conditions that range from very minor to very serious. In some cases, though, pain comes and goes with no apparent cause. We were not able to find the exact cause for your pain. At this time there is no sign of any serious illness causing your pain. More tests may be needed to determine the cause. In many cases, pain like this goes away by itself. Home care Take any medicines as prescribed. If another medicine was not prescribed for pain, you can take an [id number]-[id number] pain medicine such as ibuprofen or acetaminophen. Use these as directed on the label. Follow-up care Follow up with your healthcare provider or our staff as directed. When to seek medical advice Call your healthcare provider for any of the following: Pain changes in pattern Pain doesn't lessen or gets worse New symptoms appear Fever of 100.4 F (38 C) or higher, or as directed by your healthcare provider [phone] [employer]. [address] [place] [address]. All rights reserved. This information is not intended as a substitute for professional medical care. Always follow yourhealthcare professional's instructions. Follow Up Care 07/24/2022 00:47:01 With:Go to emergency room if symptoms worsen Address:Unknown When:2-4 days With:SAMIR OLIVER DPM, Surgery Address: [address] [place] [address], [address] Foot [facility] [place], [place] [id number]- When:2-4 days [facility] 04-10-2023 Note Discharge Instructions Thank you for allowing [facility] to assist you with your healthcare needs. The following is importantdischarge information regarding your hospital visit. Diagnosis from Today's Visit Foot pain What to Do Next Instructions from Your Care Team Follow-up with Dr. Oliver of podiatry if continued foot pain. Take Tylenol and or Motrin as needed for pain. Do not exceed the recommended dose. No qualifying data available. Post Acute Orders No qualifying data available. You Need to Schedule the Following Appointments Follow Up with Go to emergency room if symptoms worsen When Within 2-4 days Follow Up with SAMIR OLIVER DPM, Surgery When Within 2-4 days Where: [facility] [place], [place], [address] [facility] [place], [place] [id number]- Allergies Ritalin aspirin Medications Please ask your primary doctor or pharmacist before taking any other medication not listed, including over the counter drugs, herbal medications, vitamins and or supplements as they may interact withyour home medications. What How Much When Instructions Last Dose Unchanged lisinopril (lisinopril 10 mg oral tablet) 1 tab(s) by mouth Once a day Please take this list to your next doctor s visit. Bring all medications you take, including over the counter medications, herbals and other supplements with you to your doctor s visit. Patients and families are reminded to discard old lists and to update any records with all medication providers or retail pharmacies. Education Materials Acute Pain, Uncertain Cause Pain can be caused by many conditions that range from very minor to very serious. In some cases, though, pain comes and goes with no apparent cause. We were not able to find the exact cause for your pain. At this time there is no sign of any serious illness causing your pain. More tests may be needed to determine the cause. In many cases, pain like this goes away by itself. Home care Take any medicines as prescribed. If another medicine was not prescribed for pain, you can take an xghr-jbj-turgcgd pain medicine such as ibuprofen or acetaminophen. Use these as directed on the label. Follow-up care Follow up with your healthcare provider or our staff as directed. When to seek medical advice Call your healthcare provider for any of the following: Pain changes in pattern Pain doesn't lessen or gets worse New symptoms appear Fever of 100.4 F (38 C) or higher, or as directed by your healthcare provider [phone] [employer]. [address] [place] [address], [place] [address]. All rights reserved. This information is not intended as a substitute for professional medical care. Always follow yourhealthcare professional's instructions. Additional Information VACCINATE! IT SAVES LIVES! Members of the community who have not yet received the COVID-19 vaccine and would like to receive it can visit one of [facility] vaccine clinics. There are many vaccine clinic locations within the [facility]. For locations and available times, please visit www.gettheshot.coronavirus.[place].gov/. It is important to note that some COVID mobile vaccine clinics are held outdoors and may be canceled in rainy or stormy conditions. To learn more about pediatric vaccinations (ages 5-11), we invite you to visit the [facility] webpage. https://www.[email or web address].org/pages/9250-Wbbiu-Mppraqeprpz-Rjnmnnyqgf-Tuxqg-Kml stions.htmlTo learn more about the COVID-19 vaccine, we invite you to visit the CDC website for a list of frequently asked questions. https://www.cdc.gov/coronavirus/2019-ncov/vaccines/faq.html [facility] Patient Portal Access Instructions: Stay connected with your healthcare team and access your personal medical information anytime with the [facility] Patient Portal. If you would like a full copy of your medical records please contact the [facility] Medical Records Department Sunday through Sunday between 8a.m. and 4:30p.m. Please follow the directions below to access the portal: 1.Access the email account you provided upon registration to the [facility].2.Look for an invitation email from [facility].3.Open the email and access the invitation link: Accept Invitation to [facility]4.Fill in the required christina to create your account. Sign into [email or web address] with your username and password that you created in the above steps to stay up to date. You can then view a summary of results, a summary of your visits, and the ability to download your summaries to your computer or send the information securely to a physician. Remember that your healthcare information is confidential, so carefully consider who you will allow to register on the [facility] Patient Portal for access to your information. You can also access the [facility] Patient Portal on the [employer]. Simply click on "Health Records" under "HealthData" and then click on the [employer] logo. HOW TO SAFELY DISPOSE OF PRESCRIPTION MEDICATIONS Please use one of the following methods to safely dispose of your unused medications. 1.Use a drug disposal kit: the drug disposal pouch allows you to safely discard your old and unuseddrugs. Ask your nurse to give you one when you are discharged.2.Visit a local take-back location: Many local pharmacies and police departments have programs that collect old and unwanted prescriptiondrugs. Call your local pharmacy or go to http://Chumby.AVST/0A1Dn5w to find one close to you.3.Make use of household items: Use cat litter or old coffee grounds to dispose medications if other options arenot available. Mix your drugs with these household products, seal them in an airtight container andthrow it into the garbage. Call [facility]: [phone] to be sure your drugs can be disposed of in this way. Some medicines may require a different approach.4.Never flush your medications down the toilet. IF YOU HAVE BEEN PRESCRIBED AN OPIOIDS FOR PAIN If you have been prescribed an opioid (such as hydrocodone, oxycodone or morphine), it is critical to understand the possible side effects and risks of opioid pain medications. Even when taken as directed, opioids can have several side effects including: Tolerance, meaning you might need to take more of a medication for the same pain relief. Nausea, vomiting and/or constipation. Sleepiness, dizziness, dry mouth, confusion, depression or itching. Physical dependence, meaning you have withdrawal symptoms when a medication is stopped ? this can develop within a few days. KNOW YOUR RESPONSIBILITIES It is important to know exactly how much and how often to take the opioid pain medications you are prescribed. Never take opioids in higher amounts or more often than prescribed. Do not combine opioids with alcohol or other drugs that cause drowsiness, such as benzodiazepines, also known as benzos,including diazepam and alprazolam, muscle relaxants or sleep aids. Never sell or share prescriptionopioids. This is illegal. Store opioids in a secure place and out of reach of others (including children, family, friends and visitors). The last page(s) of this document has been signed and retained as a CHART COPY Signatures Patient Education Materials Pain, Acute, Uncertain Cause Medication Leaflets My discharge plan and instructions have been reviewed and explained to me and MARGARITA Stevens JASON E understand my current condition and have read and understand these discharge instructions. I have received a written copy of the plan/instructions. If I have questions, I am aware that I should contactmy doctor. Patient/Supervisor Machine Setter Signature: Date/Time: Relationship to Patient: Witness Name/Signature: Date/Time: [facility] summary Author Dr. Hernandez [facility] August 03, 2022 3:11am Note Date/Time August 03, 2022 2:3 8am [facility] Medical Records Department [address] [place] [address] Emergency Department Summary 08/03/22 MR#: [id number] Acct: [id number] Name: SAMIR AVILA Rep #:[id number] : 1975 46 From: Ish Keith PCP: Dr. Manuel Truong DO Status:RE G ER Location: ED HPI History of Present Illness Chief Complaint: Lower Extremity Injury Narrative Narrative: 46-year-old male here for foot pain. Notes bilateral foot pain. Denies any swelling. Denies any discoloration. Denies any recent injury or trauma. Denies any fever. Denies any loss of sensation. The patient denies recent surgery in the last 4 weeks or immobilization in the last 3 days, denies previous diagnosis of DVT or PE, he denies hemoptysis to me,unilateral leg swelling or malignancy with treatment the last 6 months. No estrogen use noted. [facility] Medical History (Updated 08/03/22 @ 02:[address] Ish Hernandez, ) Schizophrenia Medical History no medical history Home Medications lisinopril 10 mg tablet (Prinivil) 10 mg PO DAILY 06/12/16 [History Last Taken Unknown] risperidone 1 mg tablet 1 mg PO DAILY 06/12/16 [History Last Taken Unknown] clindamycin HCl 150 mg capsule 300 mg PO 4X/DAY ##80 09/02/16 [Rx Last Taken Unknown] ibuprofen 600 mg tablet 600 mg PO 4X/DAY PRN pain #40 tabs 07/09/22 [Rx Last Taken Unknown] Allergy/AdvReac Type Severity Reaction Status Date / Time methylphenidate HCl AdvReac Nausea Verified 08/03/22 02:22 [From Ritalin] Social History Smoking Status: Current some day smoker tobacco type: cigarettes ROS ROS ED ROS Narrative Constitutional: Denies fever HEENT: Denies sore throat Neck: Denies neck pain Cardiovascular: Denies chest pain, syncope Respiratory: Denies shortness of breath GI: Denies nausea vomiting or abdominal pain : Denies changes in urinary habits Musculoskeletal: Endorses bilateral foot pain Neurologic: Denies numbness weakness or loss of sensation Skin denies rash EXAM Physical Exam Narrative Exam Narrative: Nursing triage notes reviewed, Vital signs reviewed Constitutional: please see mdm HENT: MMM Eyes: Pupils equal round and reactive to light, Extraocular muscles intact Neck: No stridor, no JVD, full neck ROM Lungs: Clear to auscultation, No wheezing or rales. No increased work of breathing, no conversational dyspnea, no accessory muscle use, no nasal flaring. No respiratory distress noted Heart: Regular rate and rhythm, No murmurs, No rubs and No gallops, 2+ distal pulses (radial, femoral, posterior tibial) in all extremities Abdomen: Soft, there is no tenderness, rigidity, rebound or guarding, no obviousperitoneal signs, no palpable pulsatile abdominal masses, no auscultated abdominal bruit : No CVAT Extremities: No edema, no obvious deformities, intact plantar dorsiflexion, no calf tenderness, compartments are soft Neuro: Intact sensation L1-S1 dermatomal distributions. Intact 5/5 strength in hip flexion (T12-L3). Knee extension (L2-L4). Ankle dorsiflexion (L4-L5). Ankle plantar flexion (S1). Great toe extension (L5). 2+ patellar and AchillesDTRs. Skin: No rash or lesions noted Const Vital Signs: 08/03/22 02:15 Temperature 98.6 F Temperature Source Temporal Pulse Rate 77 Respiratory Rate 16 Blood Pressure 167/99 H Blood Pressure Mean 121 Pulse Ox 99 Oxygen Delivery Method Room Air [facility] MDM Narrative Medical decision making narrative: Chief Complaint: Bilateral foot burning External records reviewed: Seen on 07/31 for similar symptoms. Diagnosed athlete's foot I considered the following differential diagnosis: Trench foot, athlete's foot, DVT, carbon syndrome, arterial occlusion, fracture dislocation, cellulitis, necrotizing fasciitis The patient was hemodynamically stable, afebrile, nontoxic-appearing exam consistent with prior episode of athlete's foot. No clinical evidence of arterial occlusion, compartment syndrome, fracture dislocation, DVT, necrotizingfasciitis, cellulitis. Encouraged him to continue his treatments. The patient was given clean socks. There is no acute life limiting etiology could be ascertained. In terms the patient has a complaint of coughing up blood. He denies this to me. Factors affecting care: History of schizophrenia, hypertension Social determinants of health: Homeless History obtained from others: None Shared decision making: I will have a discussion with the patient and or visitors regarding risk/benefits of further testing or admission. They will be made aware of of the risk/benefits inherent in this decision they will be given the opportunity to voice understanding. Consults: None Discharge Plan Triage Chief Complaint: Lower Extremity Injury ED Provider: Ish Hernandez Dx/Rx/DC Orders Clinical Impression: Bilateral foot pain, Homelessness Instructions: ED RICE Prescriptions: No Action lisinopril [Prinivil] 10 MG tablet 10 mg PO DAILY risperidone 1 MG tablet 1 mg PO DAILY clindamycin HCl 150 MG capsule 300 mg PO 4X/DAY Qty: 80 0RF ibuprofen 600 mg tablet 600 mg PO 4X/DAY PRN (Reason: pain) Qty: 40 0RF Primary Care Provider: Manuel Truong Referrals: Manuel Truong DO [Primary Care Provider] - Activity Restrictions/Additional Instructions: Thank you for trusting us with your care today! Please take Tylenol (2 pills, 650 mg), ibuprofen (2 pills, 400 mg) every 6 hoursas needed for pain and fever control. Please return to the emergency department if your symptoms change or worsen. Please follow with your primary care physician for further outpatient evaluationand management. Disposition Disposition: Home, Self Care What to do if you have Problems For any increased pain, shortness of breath, bleeding, nausea or vomiting, chestpain, or any unexpected problems, contact your Primary Care Provider. Call [facility] ([phone]) or report to the closest Emergency Room. Call 911 if necessary. 08/03/22310 <Electronically signed by Ish Hernandez DO> Cosigner Signature (if applicable): CC: Dr. Manuel Truong DO ~ Signed [facility] Work Phone: Discharge summary Author Volodymyr Paz [facility] August 05, 2022 12:30am Note Date/Time August 05, 2022 12: 30am [facility] Medical Records Department [address] [place] [address] Emergency Department Summary 08/05/22 MR#: [id number] Acct: [id number] Name: SAMIR AVILA Rep #:[id number] : 1975 46 From: Volodymyr Paz DO PCP: Dr. Manuel Truong DO Status:RE G ER Location: ED HPI History of Present Illness Chief Complaint: Lower Extremity Injury Narrative Narrative: Patient is a 46-year-old male with past medical history of schizophrenia as wellas homelessness. He was seen in the ER at the end of June and had x-rays of his feet which showed no acute findings. Since that time he was seen on July 31 and August 03 secondary to foot pain and burning. Patient states that the symptoms have persisted that he has not followed up with podiatry and because ofthe persistent symptoms comes in for repeat evaluation [facility] Medical History Schizophrenia Home Medications lisinopril 10 mg tablet (Prinivil) 10 mg PO DAILY 06/12/16 [History Last Taken Unknown] risperidone 1 mg tablet 1 mg PO DAILY 06/12/16 [History Last Taken Unknown] clindamycin HCl 150 mg capsule 300 mg PO 4X/DAY ##80 09/02/16 [Rx Last Taken Unknown] ibuprofen 600 mg tablet 600 mg PO 4X/DAY PRN pain #40 tabs 07/09/22 [Rx Last Taken Unknown] Allergy/AdvReac Type Severity Reaction Status Date / Time methylphenidate HCl AdvReac Nausea Verified 08/03/22 02:22 [From Ritalin] Social History Smoking Status: Current some day smoker tobacco type: cigarettes ROS ROS ED Constitutional Constitutional ED: Denies chills or fever(s) ENT ENT ED: Denies sore throat Cardiovascular Cardiovascular: Denies chest pain Respiratory/Chest Respiratory/Chest: Denies cough or dyspnea Gastrointestinal Gastrointestinal: Denies abdominal pain, diarrhea, nausea or vomiting Genitourinary Genitourinary ED: Denies dysuria Musculoskeletal Musculoskeletal: Reports other Details: Positive bilateral foot pain Integumentary Denies rash Neurologic Neurologic: Denies headache(s) Hematologic/Lymphatic Hematologic/Lymphatic: Denies easy bleeding or easy bruising EXAM Physical Exam Const Vital Signs: 08/04/22 23:41 Temperature 98.0 F Temperature Source Temporal Pulse Rate 99 Respiratory Rate 16 Blood Pressure 152/87 H Blood Pressure Mean 108 Pulse Ox 99 Oxygen Delivery Method Room Air Positive well nourished and well developed General Appearance ED: well developed Eyes PERRL and EOMs intact bilaterally Neck supple Resp normal respiratory effort and clear to auscultation bilaterally Cardio regular rate and regular rhythm Extremity Extremity Narrative: Bilateral lower extremities are neurovascularly intact. There is no obvious bony deformity or joint effusion. Capillary refill is less than 3 seconds bilaterally. No subungual hematomas noted. No overlying abrasions or ecchymosis. Patient has mild tinea pedis without secondary changes to suggest infection. No ulcerative lesions. No erythema or warmth or lymphangitic streaking. Neuro oriented x3 and CN's II-XII intact bilaterally Sensorium / Orientation: alert Psych Psych Narrative: Patient has a flat affect Skin Skin Narrative: Soft tissue changes to the bilateral feet consistent with tinea pedis otherwise normal MDM MDM MDM Narrative Medical decision making narrative: Patient presented to the ER hypertensive otherwise with stable vitals. He denied any recent trauma. He states the pain is more of a "burning" sensation and is present in both feet. He states he has been using the cream without any symptom improvement. He states there is been no change to his symptoms such as increased severity or waxing and waning nature but because of his persistent nature comes in for repeat evaluation. Differential diagnosis includes cellulitis abscess osteomyelitis DVT acute arterial occlusion or gout. The patient does not have asymmetric edema there isnegative Homans' sign bilaterally there is no erythema or warmth or streaking noinduration or fluctuance noted and therefore concerns for infectious process or venous or arterial occlusion are low. As there is no report or signs of trauma and my concern for osteomyelitis is low there is no need for repeat x-ray . he does have changes consistent with tinea pedis with this is mild nature without systemic symptoms and therefore he needs to continue to use the cream that was prescribed at the previous evaluation. I do not feel there is need for further work-up and he can have this further evaluated by podiatry on an outpatient basis. The patient was informed that there is no grounds for further testing or admission which is what he was requesting at this time will be discharged and strongly advised to follow-up on an outpatient basis History & Record Review Discussion w/independent historian: Patient Discharge Plan Triage Chief Complaint: Lower Extremity Injury ED Provider: Volodymyr Paz Dx/Rx/DC Orders Clinical Impression: Bilateral foot pain, Athlete's foot Instructions: What Is Peripheral Neuropathy, ED Fungal Skin Infection (Tinea) Prescriptions: No Action lisinopril [Prinivil] 10 MG tablet 10 mg PO DAILY risperidone 1 MG tablet 1 mg PO DAILY clindamycin HCl 150 MG capsule 300 mg PO 4X/DAY Qty: 80 0RF ibuprofen 600 mg tablet 600 mg PO 4X/DAY PRN (Reason: pain) Qty: 40 0RF Primary Care Provider: Manuel Truong Referrals: Manuel Truong DO [Primary Care Provider] - Luil Obrien DPM [Med Staff - Active Staff] - Disposition Disposition: Home, Self Care What to do if you have Problems For any increased pain, shortness of breath, bleeding, nausea or vomiting, chestpain, or any unexpected problems, contact your Primary Care Provider. Call [facility] ([phone]) or report to the closest Emergency Room. Call 911 if necessary. 08/05/22 0030 <Electronically signed by Volodymyr Paz DO> Cosigner Signature (if applicable): CC: Dr. Manuel Truong DO ~ Signed [facility] Work Phone: Discharge summary Author Dr. Rizzo [facility] August 22, 2022 3:09am Note Date/Time August 22, 2022 3:07am [facility] Medical Records Department [address] [place] [address] Emergency Department Summary 08/22/22 MR#: [id number] Acct: [id number] Name: SAMIR AVILA Rep #:[id number] : 1975 46 From: Poncho Rizzo MD PCP: Dr. Manuel Truong DO Status:RE G ER Location: ED HPI History of Present Illness Chief Complaint: Lower Extremity Injury Informant: patient Narrative Narrative: Foot pain for months. This is his fifth or so visit here in the emergency department in the last couple months for the same thing. He has been referred to podiatry. He states he has an appointment but has not seen them yet. He denies any new symptoms. [facility] Medical History Schizophrenia Home Medications NK 08/18/22 [History Last Taken Unknown] Allergy/AdvReac Type Severity Reaction Status Date / Time methylphenidate HCl AdvReac Nausea Verified 08/22/22 02:18 [From Ritalin] Social History Smoking Status: Current some day smoker tobacco type: cigarettes ROS ROS ED Constitutional Constitutional ED: Denies chills or fever(s) Musculoskeletal Musculoskeletal: Reports extremity pain; Denies neck pain Integumentary Denies Abrasions, rash or wounds Neurologic Neurologic: Denies paresthesias or weakness EXAM Physical Exam Const Vital Signs: 08/22/22 02:16 Temperature 99 F Temperature Source Temporal Pulse Rate 85 Respiratory Rate 16 Blood Pressure 158/92 H Blood Pressure Mean 114 Pulse Ox 98 Oxygen Delivery Method Room Air Positive well nourished, well developed and unkempt General Appearance ED: unkempt, well developed and NAD Neck full ROM and supple Back/Spine normal ROM and normal to inspection Extremity normal to inspection and full ROM Extremity Narrative: Tender at the calcaneus and to the posterior aspect of the arch at the plantar aspect of the left foot. Skin is normal no lesions no abscess no signs of cellulitis. Full range of motion without difficulty, neurovascularly intact distally, no tenderness at Achilles. Neuro oriented x3, no focal motor deficits and no sensory deficits noted Sensorium / Orientation: alert Psych mental status grossly normal and thought process normal Appearance: unkempt Skin no wounds Rashes: no rashes MDM MDM MDM Narrative Medical decision making narrative: Patient is here at 2 AM for this problem that he continues to return to the ER for. I am giving him an injection of Depo-Medrol 40 mg and advised him to continue following up with podiatry, and to look for ocqa-slw-zouldqt shoe insole inserts. Discharge Plan Triage Chief Complaint: Lower Extremity Injury ED Provider: Poncho Rizzo Dx/Rx/DC Orders Clinical Impression: Plantar fasciitis of left foot Instructions: ED Plantar Fasciitis Prescriptions: No Action NK Primary Care Provider: Manuel Truong Referrals: Manuel Truong DO [Primary Care Provider] - Luli Obrien DPM [Med Staff - Active Staff] - Keep Jesus appointment Disposition Disposition: Home, Self Care What to do if you have Problems For any increased pain, shortness of breath, bleeding, nausea or vomiting, chestpain, or any unexpected problems, contact your Primary Care Provider. Call [facility] ([phone]) or report to the closest Emergency Room. Call 911 if necessary. 08/22/22 0309 <Electronically signed by Poncho Rizzo MD> Cosigner Signature (if applicable): CC: Dr. Manuel Truong DO ~ Signed [facility] Work Phone: Evaluation + Plan note No data available for this section [facility] Evaluation noteNo assessment information available [facility] Work Phone: Evaluation note* Diagnosis Dizziness- Primary Dizziness and giddiness [facility] Additional Discharge Instructions If the symptoms worsen or new symptoms develop return to the Emergency Department (ED) immediately. Call your doctor for additional questions. Instruction/Education Provided DI for Ab dominal Pain-Adult [facility] Hospital Discharge instructions* Additional Discharge Instructions Follow up with Dr. Truong [phone] in [place] Instruction/Education Provided DI for He adache [facility] Hospital Discharge instructions Additional Instructions Try to limit walking if able. Try to dry out shoes and use dry socks as much as able.[facility] Work Phone: Hospital Discharge instructions Additional Instructions Thank you for trusting us with your care today! Please take Tylenol (2 pills, 650 mg), ibuprofen (2 pills, 400 mg) every 6 hours as needed for pain and fever control. Please return to the emergency department if your symptoms change or worsen. Please follow with your primary care physician for further outpatient evaluation and management.[facility] Work Phone: Hospital Discharge instructions Additional Instructions Please follow-up with podiatry to further assess the cause of your chronic foot pain as x-ray showed no sign of fracture dislocation or infection.[facility] Work Phone: Hospital Discharge instructions Additional Instructions Try to get a home portable pulse oximeter and closely watch your oxygen levels periodically. If you stay below 90% for more than a minute or so, and/or you are feeling like your breathing is getting worse, return to the emergency department for further evaluation. Currently, CDC recommendations state that you should stay home through day 5 of symptoms, then as long as symptoms are improving, if you need to go to work or somewhere else you may for days 6-10 as long as you are wearing a mask the entire time. If you are feeling better after day 10 you may resume life is normal.[facility] Work Phone: Summary Purpose Family History No Family History Records FoundNo Family History Records FoundNo Family History Records FoundNo Family History Records FoundNo Family History Records Found Advance Directives No Advanced Directives Records Found Advance Directive Response Recorded Date/ Time Living Will No July 31, 2022 1:44am Power of Extension Service Specialist In Charge No July 31 1:44am Advance Directive Response Recorded Date/ Time Living Will No August 03, 2022 2:21am Power of Extension Service Specialist In Charge No August 03 2:21am Advance Directive Response Recorded Date/ Time Living Will No August 04, 2022 11:44pm Power of Extension Service Specialist In Charge No August 04 11:44pm Advance Directive Response Recorded Date/ Time Living Will No August 18, 2022 2: 06am Power of Extension Service Specialist In Charge No August 18, 2022 2:06am Advance Directive Response Recorded Date/ Time Living Will No August 22, 2022 2: 21am Power of Extension Service Specialist In Charge No August 22, 2022 2:21am Advance Directive Response Recorded Date/ Time Living Will No February 15 11:18pm Power of Extension Service Specialist In Charge No February 15, 2023 11:18pm Chief Complaint and Reason for Visit Chief Complaint foot pain lower extremity Chief Complaint foot pain lower extremity FOOT PAIN Chief Complaint foot pain lower extremity FOOT PAIN FEET ACHES Chief Complaint foot pain lower extremity FOOT PAIN FEET ACHES left foot pain Chief Complaint foot pain lower extremity FOOT PAIN FEET ACHES left foot pain LEFT HEEL PAIN Chief Complaint COLD Additional Source Comments (unrecognized sect ion and content) No Status Records FoundNo Status Records FoundNo Status Records FoundNo Status Records FoundNo Status Records Found INFORMATION SOURCE (unrecogn ized section and content) DATE CREATED [facility] DATE CREATED AUTHOR AUTHOR'S ORGANIZ ATION 07/25/2022 [facility] DATE CREATED AUTHOR AUTHOR'S ORGANIZ ATION 08/25/2022 [facility] ([place] DATE CREATED AUTHOR AUTHOR'S ORGANIZ ATION 08/30/2022 [facility] DATE CREATED AUTHOR AUTHOR'S ORGANIZ ATION 03/26/2023 [facility] Patient Care team informatio n (unrecognized section and content) Team Status: Active Member Role Status Dates Dr. Manuel Truong DO Family Provider Active Dr. Manuel Truong DO Primary Care Provider Active Team Status: Inactive Member Role Status Dates Dr. Manuel Truong DO Primary Care Provider Active Dr. Volodymyr Paz DO Attending Provider, Emergency Pr ovidcurtis Active Team Status: Inactive Member Role Status Dates Dr. Manuel Truong DO Primary Care Provider Active Dr. Sohail Pitts MD Emergency Provider Active Team Status: Inactive Member Role Status Dates Dr. Manuel Truong DO Primary Care Provider Active Dr. Ish Hernandez DO Emergency Provider Active Team Status: Inactive Member Role Status Dates Dr. Manuel Truong DO Primary Care Provider Active Dr. Volodymyr Paz DO Emergency Provider Active Team Status: Inactive Member Role Status Dates Dr. Manuel Truong DO Primary Care Provider Active Dr. Sohail Pitts MD Attending Provider, Emergency Provider Active Team Status: Inactive Member Role Status Dates Dr. Manuel Truong DO Primary Care Provider Active Dr. Ish Hernandez DO Attending Provider, Emergency P rovider Active Team Status: Inactive Member Role Status Dates Dr. Manuel Truong DO Primary Care Provider Active Dr. Poncho Rizzo MD Emergency Provider Active Goals (unrecognized section and content) Goals may be documented in a n alternate section Source Comments (unrecognize d section and content) In the event this informatio n is protected by the Federal Confidentiality of Alcohol and Drug Abuse Patient Records regulations: The Federal rules restrict any use of the information to criminally investigate or prosecute any alcohol or drug abuse patient.[facility] Reason for Visit (unrecogniz ed section and content) Reason Comments Acute Visit C/O feeling light he aded, nauseated "don't feel good" x 2 days FOR RECORDS PERTAINING TO PATIENTS WHO ARE OR HAVE BEEN ENROLLED IN A CHEMICAL DEPENDENCY/SUBSTANCEABUSE PROGRAM, SOME INFORMATION MAY BE OMITTED. This clinical summary was aggregated from multiple sources. Caution should be exercised in using it in the provision of clinical care. This summary normalizes information from multiple sources, and as a consequence, information in this document may materially change the coding, format and clinical context of patient data. In addition, data may be omitted in some cases. CLINICAL DECISIONS SHOULD BE BASED ON THE PRIMARY CLINICAL RECORDS. [employer] [facility]. provides no warranty or guarantee of the accuracy or completeness of information in this document.
[2025-02-28 21:18] VITALS: BP 150/97; PULSE 92; RESP 16; TEMP 37.1; O2SAT 98
--- NOTE | 2025-02-28 23:35 | EX.ED.VIS.UR ---
HPI HPI - URI History of Present Illness Chief Complaint: Sore Throat Narrative Narrative: Patient is a 49-year-old male presenting to the emergency department for 1 day of viral type symptoms. Patient has no significant past medical history. He has no sick contacts, states he is homeless. He denies any fever or chills. Endorses a sore throat and dry cough. He denies chest pain or shortness of breath. Denies any abdominal pain, nausea, vomiting, diarrhea. Denies any changes to his voice. Denies any difficulty swallowing. Has been able to eat and drink. He has not taken anything for his symptoms. ROS ROS ED ROS Narrative see HPI [facility] Medical History Schizophrenia Home Medications Medication Instructions Recorded Last Taken Type naproxen 500 mg tablet (Naprosyn) 500 mg PO BID PRN pain #20 tabs 08/31/22 Unknown Rx Allergy/AdvReac Type Severity Reaction Status Date / Time methylphenidate HCl (From AdvReac Nausea Verified 02/28/25 20:19 Ritalin) Social History Smoking Status: Current some day smoker tobacco type: cigarettes EXAM Physical Exam Narrative Exam Narrative: Vital signs: Reviewed General: Alert and oriented x 3. No acute distress HEENT: Head is normocephalic and atraumatic, sinuses nontender, pupils equal round and reactive. Nares are patent. Oropharynx and throat exams normal. Uvula midline. No exudates or posterior oropharynx erythema. No evidence of a peritonsillar abscess. Tongue is midline. No elevation. No bogginess of the palates. Moist mucous membranes. Dental caries. Neck: Supple without lymphadenopathy nontender. Trachea midline. Cardiovascular: Regular rate and rhythm, no murmurs. No rubs or gallops. Normal S1 and S2 Respiratory: Clear to auscultation bilaterally. No wheezes, rales, rhonchi Abdominal: Soft and nontender. Normal bowel sounds. No guarding or rebound. Nonsurgical abdomen Extremities: No tenderness. No bruising. Normal range of motion. Normal sensation. Skin: No rash or redness. Neurological: Cranial nerves II through XII are grossly intact. Normal strength and sensation. Normal cerebellar function The rest of the physical exam is unremarkable Const Vital Signs: 11/15/25 20:19 02/28/25 21:18 Temperature 98.7 F 98.7 F Temperature Source Oral Pulse Rate 92 92 Respiratory Rate 16 16 Blood Pressure 150/97 H 150/97 H Blood Pressure Mean 114 114 Pulse Ox 98 98 Oxygen Delivery Method Room Air MDM MDM MDM Narrative Medical decision making narrative: Patient is a 49-year-old male presenting to the emergency department for URI type symptoms. Patient was seen and examined. Vitals are stable. Patient resting in bed comfortably no acute distress. He is able to eat and drink. He appears well and is nontoxic-appearing. Do not suspect RPA, epiglottis. Physical exam was unremarkable. No exudates. No evidence of [employer]ELOPER. Patient was given Tylenol and Motrin for symptomatic control. He is only had 1 day of symptoms. Recommended supportive care for home. Patient discharged from the Emergency Department. I do not feel that the patient's evaluation reveals any acute reason for admission at this time. I instructed them to either follow-up with their primary care physician or promptly return to the Emergency Department for reevaluation should symptoms worsen or new symptoms develop. I explained what symptoms would indicate the need to return to the emergency department. Shared decision making was used. The patient voiced understanding of the treatment plan and is agreeable with it. Clinical impression Viral pharyngitis History & Record Review Discussion w/independent historian: Patient Discharge Plan Triage Chief Complaint: Sore Throat ED Provider: Dianne Villalpando Dx/Rx/DC Orders Clinical Impression: Acute sore throat Instructions: Self-Care for Sore Throats, ED Pharyngitis, Viral Prescriptions: No Action naproxen [Naprosyn] 500 mg tablet 500 mg PO BID PRN (Reason: pain) Qty: 20 0RF Primary Care Provider: aMnuel Engel Referrals: Manuel Engel DO [Primary Care Provider, Medical] - As soon as possible Activity Restrictions/Additional Instructions: Take Tylenol, Motrin and drink lots of fluids. Your evaluation in the Emergency Department did not reveal any acute reason for admission. However, I want to emphasize that you may be early in the course of a disease process or illness even if it is not present. For this reason you should follow-up within 24 hours for reevaluation with either your primary care physician or if necessary back here in the Emergency Department. You should return to the Emergency Department immediately if your symptoms worsen or new symptoms develop. Print Language: Burmese Disposition Disposition: Home, Self Care Discharge Date/Time: 02/28/25 21:18
== END 2025-02-28 21:18 | disposition home or self-care (01) ==
PROVIDERS: Emergency Provider Student in an Organized Health Care Education/Training Program; PCP Student in an Organized Health Care Education/Training Program; Visit Provider Student in an Organized Health Care Education/Training Program
DX: J02.9 Acute pharyngitis, unspecified (principal); Z59.00 Homelessness unspecified; F17.210 Nicotine dependence, cigarettes, uncomplicated
CPT/HCPCS: 99282